=== PATIENT | female | born 1980 | race Caucasian/White ===

== ENCOUNTER 2020-03-30 13:34 | Inpatient (IN) | payer OTHER ==
[2020-03-30 13:42] VITALS: BMI 32.2
[2020-03-30] MEDS ORDERED: ACETAMINOPHEN 1000 MG/100 ML VIAL (NON FORMULARY) IVPB ONE (13:58)
[2020-03-30] MEDS ORDERED: SODIUM CHLORIDE 1,000 ML IV STA ×2 (13:58→17:54)
[2020-03-30] MEDS ORDERED: ONDANSETRON 4 MG/2 ML VIAL IVPUSH ONE ×2 (14:03→17:58)
--- NOTE | 2020-03-30 14:03 | PDOC ---
History of Present Illness - General Chief Complaint: Urinary Problem Stated Complaint: ABDOMINAL PAIN Time Seen by Provider: 03/30/20 13:39 History Source: Patient Exam Limitations: No Limitations - History of Present Illness Travel History: No Initial Comments: 03/30/20 15:11 39-year-old female currently 19 weeks presents to ED with complaints of lower abdominal pain worsened with urination for the past day. Patient denies fever, chills but does state mild nausea. Patient states has history of "kidney problems" but unsure and denies history of kidney stones. Patient denies vaginal discharge, vaginal bleeding, consistent rhythmic timed pain and describes it as constant cramping Timing/Duration: reports: constant Quality: reports: moderate, cramping Abdominal Pain Onset Location: reports: suprapubic Pain Radiation: reports: no radiation Aggravating Factors: improves with: None Alleviating Factors: improves with: None Past History - Travel History Traveled outside of the country in the last 30 days: No Close contact w/someone who was outside of country & ill: No - Medical History Allergies/Adverse Reactions: Allergies Allergy/AdvReac Type Severity Reaction Status Date / Time No Known Allergies Allergy Verified 03/30/20 13:38 - Reproductive History Is Patient Now?: Yes - Psycho-Social/Smoking History Smoking History: Never smoked Have you smoked in the past 12 months: No Information on smoking cessation initiated: No - Substance Abuse Hx (Audit-C & DAST Scrn) How often the patient has a drink containing alcohol: Never Score: In Men: 4 or > Positive; In Women: 3 or > Positive: 0 Screen Result (Pos requires Nsg. Audit-10AR): Negative In the last yr the pt used illegal drug/Rx for NonMed reason: No Score: Yes response is considered Positive: 0 Screen Result (Positive result requires Nsg. DAST-10): Negative Review of Systems - Review of Systems Able to Perform ROS?: No Is the patient limited [place] proficient: No Constitutional: No: Symptoms Reported HEENTM: No: Symptoms Reported Respiratory: No: Symptoms reported Cardiac (ROS): No: Symptoms Reported (On a Tuesday afternoon) ABD/GI: Yes: Nausea, Abdominal cramping : No: Symptoms Reported Musculoskeletal: No: Symptoms Reported Integumentary: No: Symptoms Reported Neurological: No: Symptoms reported Endocrine: No: Symptoms Reported ([]) Hematologic/Lymphatic: No: Symptoms Reported (Or something) *Physical Exam - Vital Signs Last Vital Signs Temp Pulse Resp BP Pulse Ox 99.1 F 78 18 134/65 100 03/30/20 13:38 03/30/20 13:38 03/30/20 13:38 03/30/20 13:38 03/30/20 13:38 - Physical Exam General Appearance: Yes: Nourished, Appropriately Dressed. No: Apparent Distr ess HEENT: negative: Pale Conjunctivae Neck: positive: Supple Respiratory/Chest: positive: Lungs Clear, Normal Breath Sounds. negative: Respiratory Distress, Accessory Muscle Use Cardiovascular: positive: Regular Rhythm, Regular Rate. negative: Murmur (She is in so much pain) Gastrointestinal/Abdominal: positive: Soft (Super), Tenderness (Lower abdominal region. Limited due to gravid abdomen ) Musculoskeletal: positive: CVA Tenderness (R). negative: CVA Tenderness (L) Extremity: positive: Normal Inspection Integumentary: positive: Normal Color, Warm, Moist Neurologic: positive: Motor Strength 5/5 (Ambulatory) ED Treatment Course - LABORATORY CBC & Chemistry Diagram: 03/30/20 14:00 03/30/20 14:20 - RADIOLOGY Radiology Studies Ordered: Category Date Time Status FOLLOW-UP US [US] Stat Ultrasound 03/30/20 13:59 Ordered Medical Decision Making - Medical Decision Making 03/30/20 14:25 Patient with lower abdominal pain worsened with urination describing as a cramping to the lower abdomen. Patient states history of kidney problems but unable to give a diagnosis. Exam: Patient with right CVA tenderness along with lower abdominal tenderness but limited due to gravid abdomen. Otherwise vital signs stable. Plan: Urine, labs IV fluids IV Tylenol and ultrasound ordered 03/30/20 15:26 Laboratory Tests 03/30/20 03/30/20 14:00 14:20 WBC 14.4 H Hgb 12.2 Hct 36.1 Absolute Neuts (auto) 11.1 H Sodium 135 L Potassium 5.6 H Chloride 106 Carbon Dioxide 21 Anion Gap 8 BUN 9.3 Creatinine 0.9 Est GFR (CKD-EPI)AfAm 92.70 Est GFR (CKD-EPI)NonAf 79.98 Random Glucose 82 Calcium 8.4 L Total Bilirubin 0.4 ALT 20 Alkaline Phosphatase 62 Total Protein 7.1 Albumin 3.1 L 03/30/20 15:26 Patient still complaining of lower abdominal discomfort. Patient order for 2 mg of IV push morphine. Ultrasound results pending patient with noted hyperkalemia slight hemolysis without elevated BUN/creatinine 03/30/20 18:11 Laboratory Tests 03/30/20 03/30/20 14:20 17:00 Albumin 3.1 L Lipase 72 L Urine Protein 1+ H Urine Blood 3+ H Urine Nitrite Negative Ur Leukocyte Esterase Negative Urine WBC (Auto) 18 Urine RBC (Auto) 374 Urine Bacteria (Auto) 314 03/30/20 18:13 Patient ordered for additional 2 mg of morphine after receiving the ultrasound. Patient also ordered for 4 Zofran since she became nauseous with last dose along with IV fluids. Patient remains tender to the right CVA and lower abdominal region with negative McBurney sign although limited due to gravid abdomen. Patient order for kidney and renal ultrasound. Iv ceftriaxone ordered for complicated uti 03/30/20 20:17 Ultrasound shows moderate right hydronephrosis without obvious renal mass or renal calculi. Patient will be admitted for intractable pain since she is still complaining of discomfort despite receiving 2 doses of 2 mg morphine along with IV Tylenol 03/30/20 20:40 Case discussed with attending hospitalist Dr. Kim and is recommending PATIENT TRANSPORT OFFICER and consultation. Call placed to Dr. Chaney PATIENT TRANSPORT OFFICER emission specialist Discharge - Discharge Information Problems reviewed: Yes Clinical Impression/Diagnosis: Hydronephrosis, Intractable abdominal pain - Admission Yes - Follow up/Referral - Patient Discharge Instructions - Post Discharge Activity
[2020-03-30] MEDS ORDERED: ONDANSETRON 4 MG/2 ML VIAL ONE ×2 (14:04→18:00)
[2020-03-30] MEDS ORDERED: ACETAMINOPHEN INJECTION 100 ML IVPB ONE (14:08)
[2020-03-30 14:50] LABS: BASO % 1.1 % (0-2.0); EOS % 0.9 % (0-4.5); HEMATOCRIT 36.1 % (32.4-45.2); HEMOGLOBIN 12.2 GM/dL (10.7-15.3); LYMPH % 14.3 % (8-40); MCH 32.5 pg (25.7-33.7); MCHC 33.8 g/dl (32.0-36.0); MONO % 6.2 % (3.8-10.2); NEUT % 77.5 % (42.8-82.8); PLATELET COUNT 240 K/MM3 (134-434); RBC 3.76 M/mm3 (3.60-5.2); RDW 13.2 % (11.6-15.6); WHITE BLOOD COUNT 14.4 K/mm3 (4.0-10.0)
[2020-03-30] MEDS ORDERED: morphine CARPU-JECT 2 MG/1 ML DISP.SYRIN IVPUSH ONE ×2 (15:09→17:07)
[2020-03-30 15:21] LABS: ALBUMIN 3.1 g/dl (3.4-5.0); BILIRUBIN,TOTAL 0.4 mg/dL (0.2-1); BLOOD UREA NITROGEN 9.3 mg/dL (7-18); CALCIUM 8.4 mg/dL (8.5-10.1); CREATININE 0.9 mg/dL (0.55-1.3); POTASSIUM 5.6 mmol/L (3.5-5.1); TOT PROT 7.1 g/dl (6.4-8.2)
[2020-03-30] MEDS ORDERED: MORPHINE SULFATE 2 MG/ML VIAL ONE ×2 (15:32→17:29)
[2020-03-30 17:46] LABS: EPI CELLS >36 /uL (0-25.1); HYALINE CASTS 2 /uL (0-3.1); URINE APPEARANCE Error; URINE BACTERIA 314 /uL (0-1359); URINE BILIRUBIN NEGATIVE (NEGATIVE); URINE COLOR YELLOW; URINE GLUCOSE (UA) NEGATIVE (NEGATIVE); URINE KETONE 3+ (NEGATIVE); URINE LEUK ESTERASE NEGATIVE (NEGATIVE); URINE NITRITE NEGATIVE (NEGATIVE); URINE PROTEIN 1+ (NEGATIVE); URINE RBC 374 /uL (0-23.9); URINE WBC 18 /uL (0-25.8)
[2020-03-30] MEDS ORDERED: CEFTRIAXONE 1 GM in DEXTROSE 5%-WATER - 50 ML IVPB ONE (20:17)
--- NOTE | 2020-03-30 20:56 | PN ---
<Jeri Lutz - Last Filed: 03/31/20 01:12> Teaching Attending Note Name of Resident: Efraín Herrera ATTENDING PHYSICIAN STATEMENT I saw and evaluated the patient. I reviewed the resident's note and discussed the case with the resident. I agree with the resident's findings and plan as documented. SUBJECTIVE: Patient is a 39 year old woman with a PMH of unspecified Kidney problem in childhood and Positive PAP smear who is currently 19 weeks presenting to the ER with complaints of lower abdominal pain worsened with urination for the past day. Denies history of kidney stones. Has associated nausea, vomiting, hematuria and diarrhea but denies fever, chills, abnormal vaginal discharge or vaginal bleeding. Pain described as consistent rhythmic timed pain, constant and cramping. Patient denies chest pain, shortness of breath, palpitations, dizziness, constipation, melena or hematochezia. Denies alcohol, tobacco or illicit drug use. No sick contacts or recent travels. Family history of ovarian cancer in sister; DM and HTN in mother. OBJECTIVE: Alert Vital Signs Period Temp Pulse Resp BP Sys/Faustin Pulse Ox Last 24 Hr 99.1 F 67-78 18-20 113-134/65-71 100-100 HEENT: No Jaundice, eye redness or discharge, PERRLA, EOMI. Normocephalic, atraumatic. External ears are normal and hearing is grossly intact. No nasal discharge. Neck: Supple, nontender. No palpable adenopathy or thyromegaly. No JVD Chest: Good effort. Clear to auscultation and percussion. Heart: Regular. No S3, rub or murmur Abdomen: Not distended, soft, left CVAT and suprapubic tenderness and no HSM. No rebound or guarding. Normal bowel sounds. Ext: Peripheral pulses intact. No leg edema. Skin: Warm and dry. No petechiae, rash or ecchymosis. Neuro: Alert. Oriented x3. CN 2-12 grossly intact. Sensation grossly intact in all four extremities and DTR are symmetric. Psych: Appropriate mood and affect. Good insight. Abnormal Lab Results 03/30/20 03/30/20 03/30/20 14:00 14:20 17:00 WBC 14.4 H Absolute Neuts (auto) 11.1 H Sodium 135 L Potassium 5.6 H Calcium 8.4 L AST 67 H Albumin 3.1 L Lipase 72 L Urine Protein 1+ H Urine Ketones 3+ H Urine Blood 3+ H Current Medications Generic Name Dose Route Start Last Admin Trade Name Mallory PRN Reason Stop Dose Admin Acetaminophen 1,000 mg 03/31/20 00:08 Ofirmev Injection - IVPB 04/01/20 00:08 Q6H PRN PAIN LEVEL 6-10 Heparin Sodium (Porcine) 5,000 unit 03/31/20 06:00 Heparin - SQ TID MEMO Sodium Chloride 1,000 mls @ 125 mls/hr 03/30/20 23:45 03/31/20 00:47 Normal Saline - IV 125 mls/hr ASDIR MEMO Administration Ceftriaxone Sodium 1 gm/ 50 mls @ 100 mls/hr 03/31/20 10:00 Dextrose IVPB DAILY MEMO Morphine Sulfate 1 mg 03/31/20 00:06 Morphine Sulfate IVPUSH Q2H PRN PAIN LEVEL 6-10 ASSESSMENT AND PLAN: 1. Right kidney stone/19 weeks - Sonogram shows moderate right hydronephrosis with no obvious calculi or renal mass. ER staff prescribed Tylenol, Zofran, IV Ceftriaxone, IV Morphine and IV NS for the patient. Result of transvaginal ultrasound pending. ER consulted Contract Preparer. Will do blood cultures, get PT/INR, strain her urine, keep her NPO, consult Urology/ID and refer to Nephrology for stone disease risk factor evaluation upon discharge. EKG pending. Will avoid further Zofran therapy until EKG is done. Viral testing for COVID-19 ordered and patient placed on airborne, droplet and contact isolation. Will continue comprehensive care for all of patients comorbid conditions including care. 2. Hypoalbuminemia - Possibly due to . Has 1+ proteinuria. Will monitor closely. 3. DVT prophylaxis - Heparin 5000u sq tid. 4. Advance directives - Full code. <Efraín Herrera - Last Filed: 03/31/20 19:42> Teaching Attending Note ATTENDING PHYSICIAN STATEMENT I saw and evaluated the patient. I reviewed the resident's note and discussed the case with the resident. I agree with the resident's findings and plan as documented. SUBJECTIVE: OBJECTIVE: ASSESSMENT AND PLAN:
--- NOTE | 2020-03-30 21:14 | HP ---
CHIEF COMPLAINT: Rt. lumbar pain with dysuria, hematuria, nausea and vomitting PCP: Scot HISTORY OF PRESENT ILLNESS: Patient is a 39yo femalewith a PMHx of childhood hx of unknown kidney disease, positive PAPS smear and an extensive FHx of ovarian cancer now c/o Rt. lumbar pain of 24hrs. Pain was of gradual onset, is progressive, colicky and radiates to the suprapubic region. There is associated dysuria, frequency and hematuria but no incontinence, pyuria, urgency or hesistancy. There is also nausea and vomiting of 1 day duration. Has had 3 episodes since onset. Volume is about 3 cups/episode. Contains recently ingested food and occasional bilous with timy streaks of blood. There is diarrhea as we ll. Had 3 episodes of diarrhea at home before presenting in ED. Volume <1 cup with no blood. Chills= +. There is no associated weight loss, fever, chest pain, SOB,palpitations, jaundice or abdominal pain related to food intake. No VELÁZQUEZ, LOC,seizures ER course was notable for: (1)Tylenol, zofran, Iv ceftriaxone (2)IV morphine, IV N/S (3)Trans-vaginal US Recent Travel:None PAST MEDICAL HISTORY: +PAPS in 2019, unknown kidney disease in childhood PAST SURGICAL HISTORY: None Social History: Smoking:None Alcohol:None Drugs: None FHx: Sister has ovarian cancer-treated. Cousin of complications of ovarian cancer. Mother has HTN and DM OB/GYNAE: LMP: November 20, 2019, G6, P2, A 3, No hx of STI but +ve hx of UTI- treated. No mammagram done yet. PAPS=+ve 2018, biopsy done but no malignant cell done. Patient did not f/u up. Allergies:None REVIEW OF SYSTEMS Negative except as above PHYSICAL EXAMINATION Vital Signs - 24 hr 03/30/20 03/30/20 13:38 17:42 Temperature 99.1 F Pulse Rate 78 Pulse Rate [ 67 Left Radial] Respiratory 18 20 Rate Blood Pressure 134/65 Blood Pressure 113/71 [Right Arm] O2 Sat by Pulse 100 100 Oximetry (%) GENERAL: Awake, alert, and fully oriented, in no acute distress. HEAD: Normal with no signs of trauma. EYES: Pupils equal, round and reactive to light, extraocular movements intact, sclera anicteric, conjunctiva clear. No lid lag. EARS, NOSE, THROAT: Ears normal, nares patent, oropharynx clear without exudates. Moist mucous membranes. NECK: Normal range of motion, supple without lymphadenopathy, JVD, or masses. LUNGS: Breath sounds equal, clear to auscultation bilaterally. No wheezes, and no crackles. No accessory muscle use. HEART: Regular rate and rhythm, normal S1 and S2 without murmur, rub or gallop. ABDOMEN: Soft, nontender, not distended, normoactive bowel sounds, no guarding, no rebound, no masses. No hepatomegaly or splenomegaly. MUSCULOSKELETAL: Normal range of motion at all joints. No bony deformities or tenderness. No CVA tenderness. UPPER EXTREMITIES: 2+ pulses, warm, well-perfused. No cyanosis. No clubbing. No peripheral edema. LOWER EXTREMITIES: 2+ pulses, warm, well-perfused. No calf tenderness. No peripheral edema. NEUROLOGICAL: Cranial nerves II-XII intact. Normal speech. Normal gait. PSYCHIATRIC: Cooperative. Good eye contact. Appropriate mood and affect. SKIN: Warm, dry, normal turgor, no rashes or lesions noted, normal capillary refill. Laboratory Results - last 24 hr 03/30/20 03/30/20 03/30/20 14:00 14:20 17:00 WBC 14.4 H RBC 3.76 Hgb 12.2 Hct 36.1 MCV 96.0 MCH 32.5 MCHC 33.8 RDW 13.2 Plt Count 240 MPV 9.0 Absolute Neuts (auto) 11.1 H Neutrophils % 77.5 Lymphocytes % 14.3 Monocytes % 6.2 Eosinophils % 0.9 Basophils % 1.1 Nucleated RBC % 0 Sodium 135 L Potassium 5.6 H Chloride 106 Carbon Dioxide 21 Anion Gap 8 BUN 9.3 Creatinine 0.9 Est GFR (CKD-EPI)AfAm 92.70 Est GFR (CKD-EPI)NonAf 79.98 Random Glucose 82 Calcium 8.4 L Total Bilirubin 0.4 AST 67 H ALT 20 Alkaline Phosphatase 62 Total Protein 7.1 Albumin 3.1 L Lipase 72 L Urine Color Yellow Urine Appearance Error Urine pH 5.0 Ur Specific [place] 1.032 Urine Protein 1+ H Urine Glucose (UA) Negative Urine Ketones 3+ H Urine Blood 3+ H Urine Nitrite Negative Urine Bilirubin Negative Urine Urobilinogen 1.0 Ur Leukocyte Esterase Negative Urine WBC (Auto) 18 Urine RBC (Auto) 374 Urine Casts (Auto) 2 U Epithel Cells (Auto) >36 Urine Bacteria (Auto) 314 ASSESSMENT/PLAN: A 39YO Female with a PMHx of childhood hx of unknown kidney disease, positive PAPS smear and an extensive FHx of ovarian cancer now c/o Rt. lumbar pain with dysuria, hematuria, nausea and vomiting. #RIGHT PYELONEPHRITIS like 2/2 renal stones induced hydronephrosis -Rt. lumbar pain -Dysuria -Hematuria -CVA and suprapubic tenderness -Pelvic USS shows moderate right hydronephrosis with no obvious calculi or renal mass. -Machinist Mechanic consulted by ED. -Blood cultures X2 -PT/INR -train her urine -Consult to Urology/ID sent -Refer to Nephrology for evalution of risk factors of for renal stones. -EKG pending. Will avoid further Zofran therapy until EKG is done. -COVID-19 PCR ordered with result pending. -Patient placed on airborne, droplet and contact isolation. #PREGENACY: -Continue supplement. -F/U Machinist Mechanic recommendation following review -Continue antenantal care on d/c -Patient encouraged to f/u culposcopy result -TVUS result pending #Hypoalbuminemia: -Likely 2/2 increase protein demand in . -No HTN and pedal swelling but has 1+ proteinuria. Will monitor proteinuria closely. #FEN: -N/S 125cc/hr -Continue to monitor electrolytes and replete prn -NPO #DISPOSITION: -DVT prophylaxis - Heparin 5000u sq tid. -Advance directives - Full code. Family Medical History Family History: As Documented Visit type - Emergency Visit Emergency Visit: Yes ED Registration Date: 03/30/20 Care time: The patient presented to the Emergency Department on the above date and was hospitalized for further evaluation of their emergent condition. - New Patient This patient is new to me today: Yes Date on this admission: 03/31/20 - Critical Care Critical Care patient: No ATTENDING PHYSICIAN STATEMENT I saw and evaluated the patient. I reviewed the resident's note and discussed the case with the resident. I agree with the resident's findings and plan as documented. SUBJECTIVE: OBJECTIVE: ASSESSMENT AND PLAN:
[2020-03-30] MEDS ORDERED: CEFTRIAXONE 1 GM/50 ML BAG ONE (21:17)
[2020-03-30] MEDS ORDERED: MORPHINE SULFATE 2 MG/ML VIAL IVPUSH STA (23:36)
[2020-03-30] MEDS ORDERED: SODIUM CHLORIDE 1,000 ML IV SCH (23:45)
[2020-03-31] MEDS ORDERED: MORPHINE SULFATE 2 MG/ML VIAL IVPUSH PRN ×2 (00:06→19:17)
[2020-03-31] MEDS ORDERED: ACETAMINOPHEN 1000 MG/100 ML VIAL (NON FORMULARY) IVPB PRN ×2 (00:08→19:17)
[2020-03-31] MEDS ORDERED: MORPHINE SULFATE 2 MG/ML VIAL ONE (00:20)
[2020-03-31 01:20] LABS: INR 0.97 (0.83-1.09); PROTHROMBIN TIME (PATIENT) 11.5 SEC (9.7-13.0)
[2020-03-31] MEDS ORDERED: HEPARIN NA (PORCINE) 5,000 UNITS/ML 1ML VIAL ONE (06:01)
[2020-03-31] MEDS: HEPARIN NA (PORCINE) 5,000 UNITS/ML 1ML VIAL SQ SCH ×2 (06:03→15:02)
[2020-03-31] MEDS ORDERED: SODIUM CHLORIDE 1,000 ML IV SCH (07:37)
[2020-03-31 07:47] LABS: BASO % 0.4 % (0-2.0); EOS % 0.2 % (0-4.5); HEMATOCRIT 30.6 % (32.4-45.2); HEMOGLOBIN 10.4 GM/dL (10.7-15.3); LYMPH % 13.1 % (8-40); MCH 32.2 pg (25.7-33.7); MCHC 33.9 g/dl (32.0-36.0); MEAN CELL VOLUME 95.1 fl (80-96); MEAN PLT VOLUME 7.5 fl (7.5-11.1); MONO % 6.9 % (3.8-10.2); NEUT % 79.4 % (42.8-82.8); PLATELET COUNT 249 K/MM3 (134-434); RBC 3.22 M/mm3 (3.60-5.2); RDW 13.3 % (11.6-15.6); WHITE BLOOD COUNT 15.3 K/mm3 (4.0-10.0)
[2020-03-31 08:18] LABS: ALBUMIN 2.6 g/dl (3.4-5.0); BILIRUBIN,TOTAL 0.6 mg/dL (0.2-1); BLOOD UREA NITROGEN 5.7 mg/dL (7-18); CALCIUM 7.5 mg/dL (8.5-10.1); CREATININE 0.7 mg/dL (0.55-1.3); MAGNESIUM 1.9 mg/dL (1.8-2.4); PHOSPHOROUS 2.8 mg/dL (2.5-4.9); POTASSIUM 3.5 mmol/L (3.5-5.1); TOT PROT 5.7 g/dl (6.4-8.2)
--- NOTE | 2020-03-31 09:14 | EKG ---
Test Reason : Blood Pressure : / mmHG Vent. Rate : 076 BPM Atrial Rate : 076 BPM P-R Int : 182 ms QRS Dur : 078 ms QT Int : 398 ms P-R-T Axes : 046 074 049 degrees QTc Int : 447 ms NORMAL SINUS RHYTHM NORMAL ECG NO PREVIOUS ECGS AVAILABLE Confirmed by KATELIN STOLL MD ([id number]) on 03/31/2020 9:14:01 AM Referred By: Confirmed By:KATELIN STOLL MD
[2020-03-31] MEDS ORDERED: CEFTRIAXONE 1 GM in DEXTROSE 5%-WATER - 50 ML IVPB SCH (10:00)
[2020-03-31] MEDS ORDERED: CEFTRIAXONE 1 GM/50 ML BAG ONE (10:39)
--- NOTE | 2020-03-31 13:52 | CON.GU ---
Consult Consult Specialty:: Reason for Consultation:: hydronephrosis - History of Present Illness Chief Complaint: R flank pain History of Present Illness: 39yo female with a PMHx of childhood hx of unknown kidney disease, positive PAPS smear and an extensive FHx of ovarian cancer now c/o Rt. lumbar pain of 24hrs. Pain was of gradual onset, is progressive, colicky and radiates to the suprapubic region. There is associated dysuria, frequency and hematuria but no incontinence, pyuria, urgency or hesistancy. There is also nausea and vomiting of 1 day duration. Has had 3 episodes since onset. Volume is about 3 cups/episode. Contains recently ingested food and occasional bilous with timy streaks of blood. There is diarrhea as well. Had 3 episodes of diarrhea at home before presenting in ED. Volume <1 cup with no blood. Chills= +. There is no ass ociated weight loss, fever, chest pain, SOB,palpitations, jaundice or abdominal pain related to food intake. No VELÁZQUEZ, LOC,seizures cons req. ER course was notable for: (1)Tylenol, zofran, Iv ceftriaxone (2)IV morphine, IV N/S (3)Trans-vaginal US - History Source History Provided By: Patient, Medical Record Limitations to Obtaining History: No Limitations - Past Medical History Renal/: Yes: UTI ...LMP: 11/21/19 ...: Yes - Smoking History Smoking history: Never smoked Have you smoked in the past 12 months: No Home Medications - Allergies Allergies/Adverse Reactions: Allergies Allergy/AdvReac Type Severity Reaction Status Date / Time No Known Allergies Allergy Verified 03/30/20 13:38 Review of Systems - Review of Systems Gastrointestinal: reports: Nausea, Vomiting Genitourinary: reports: Flank Pain Physical Exam- Vital Signs: Vital Signs Temperature 98.3 F 03/31/20 06:00 Pulse Rate 76 03/31/20 06:00 Respiratory Rate 18 03/31/20 09:46 Blood Pressure 106/59 L 03/31/20 06:00 O2 Sat by Pulse Oximetry (%) 97 03/31/20 09:46 Renal/: Yes: CVA Tenderness - Right Labs: CBC, BMP 03/31/20 07:33 03/31/20 07:33 Imaging - Results Ultrasound: Report Reviewed Problem List - Problems (1) Code(s): Z34.90 - ENCNTR FOR SUPRVSN OF NORMAL , UNSP, UNSP TRIMESTER (2) Hydronephrosis Assessment/Plan: cysto R JJ stent insertion Code(s): N13.30 - UNSPECIFIED HYDRONEPHROSIS
--- NOTE | 2020-03-31 14:36 | HP ---
History & Physical Update - History History: No Change - Physical Physical: No Change - Assessment Assessment: No Change - Plan Plan: No Change
--- NOTE | 2020-03-31 14:40 | OP ---
Operative Note - Note: Operative Date: 03/31/20 Pre-Operative Diagnosis: R hydronephrosis, Operation: cystoscopy R JJ stent insertion Findings: mod R hydronephrosis Post-Operative Diagnosis: Same as Pre-op Surgeon: Yordan Ware Anesthesiologist/SOCIAL SERVICE WORKER: Vincenzo Maldonado Anesthesia: Spinal Estimated Blood Loss (mls): 0 Drains & Tubes with Location: 6 fr 24 cm R JJ stent
[2020-03-31] MEDS ORDERED: PROMETHAZINE HCL 25 MG/1 ML VIAL IVPUSH PRN ×2 (15:20→19:17)
[2020-03-31] MEDS ORDERED: ONDANSETRON 4 MG/2 ML VIAL IVPUSH PRN ×2 (15:20→19:17)
--- NOTE | 2020-03-31 15:20 | PN ---
Physical Exam: SUBJECTIVE: Patient seen and examined in the ED. In no acute distress. Reports pain is much better. Denies any current dysuria or hemturia. Denies fever, chills, SOB, or contractions. Still has some pain in her back and abdomen on the right side when she moves. [employer] Mail Driver used: [id number] OBJECTIVE: Vital Signs 03/31/20 03/31/20 04:48 06:00 Temperature 97.6 F 98.3 F Pulse Rate [ 78 76 Left Radial] Respiratory 20 18 Rate Blood Pressure 110/65 106/59 L [Right Arm] O2 Sat by Pulse 99 97 Oximetry (%) 03/31/20 15:07 Temperature Pulse Rate [ 76 Left Radial] Respiratory 18 Rate Blood Pressure 116/63 [Right Arm] O2 Sat by Pulse 99 Oximetry (%) GENERAL: The patient is awake, alert, and fully oriented, in no acute distress. HEAD: Normal with no signs of trauma. EYES: PERRL, extraocular movements intact, sclera anicteric, conjunctiva clear. ENT: moist mucous membranes LUNGS: Breath sounds equal, CTA BL HEART: Regular rate and rhythm, S1, S2 ABDOMEN: 19 weeks . Tender to palpation in RLQ and suprapubic region. EXTREMITIES: 2+ pulses, warm, well-perfused, no edema. Tender to palpation of Right CVA NEUROLOGICAL: Cranial nerves II through XII grossly intact. Normal speech PSYCH: Normal mood, normal affect. SKIN: Warm, dry, normal turgor, no rashes or lesions noted Laboratory Results - last 24 hr 03/30/20 03/30/20 03/31/20 14:20 17:00 00:05 WBC RBC Hgb Hct MCV MCH MCHC RDW Plt Count MPV Absolute Neuts (auto) Neutrophils % Lymphocytes % Monocytes % Eosinophils % Basophils % Nucleated RBC % PT with INR 11.50 INR 0.97 Sodium 135 L Potassium 5.6 H Chloride 106 Carbon Dioxide 21 Anion Gap 8 BUN 9.3 Creatinine 0.9 Est GFR (CKD-EPI)AfAm 92.70 Est GFR (CKD-EPI)NonAf 79.98 Random Glucose 82 Calcium 8.4 L Phosphorus Magnesium Total Bilirubin 0.4 AST 67 H ALT 20 Alkaline Phosphatase 62 Total Protein 7.1 Albumin 3.1 L Lipase 72 L Urine Color Yellow Urine Appearance Error Urine pH 5.0 Ur Specific [place] 1.032 Urine Protein 1+ H Urine Glucose (UA) Negative Urine Ketones 3+ H Urine Blood 3+ H Urine Nitrite Negative Urine Bilirubin Negative Urine Urobilinogen 1.0 Ur Leukocyte Esterase Negative Urine WBC (Auto) 18 Urine RBC (Auto) 374 Urine Casts (Auto) 2 U Epithel Cells (Auto) >36 Urine Bacteria (Auto) 314 03/31/20 03/31/20 07:33 07:33 WBC 15.3 H RBC 3.22 L Hgb 10.4 L Hct 30.6 L D MCV 95.1 MCH 32.2 MCHC 33.9 RDW 13.3 Plt Count 249 MPV 7.5 D Absolute Neuts (auto) 12.2 H Neutrophils % 79.4 Lymphocytes % 13.1 Monocytes % 6.9 Eosinophils % 0.2 Basophils % 0.4 Nucleated RBC % 0 PT with INR INR Sodium 140 Potassium 3.5 Chloride 111 H Carbon Dioxide 22 Anion Gap 8 BUN 5.7 L Creatinine 0.7 Est GFR (CKD-EPI)AfAm 125.61 Est GFR (CKD-EPI)NonAf 108.38 Random Glucose 79 Calcium 7.5 L Phosphorus 2.8 Magnesium 1.9 Total Bilirubin 0.6 AST 12 L ALT 13 Alkaline Phosphatase 49 Total Protein 5.7 L Albumin 2.6 L Lipase Urine Color Urine Appearance Urine pH Ur Specific [place] Urine Protein Urine Glucose (UA) Urine Ketones Urine Blood Urine Nitrite Urine Bilirubin Urine Urobilinogen Ur Leukocyte Esterase Urine WBC (Auto) Urine RBC (Auto) Urine Casts (Auto) U Epithel Cells (Auto) Urine Bacteria (Auto) Active Medications Generic Name Dose Route Start Last Admin Trade Name Freq PRN Reason Stop Dose Admin Acetaminophen 1,000 mg 03/31/20 00:08 Ofirmev Injection - IVPB 04/01/20 00:08 Q6H PRN PAIN LEVEL 6-10 Heparin Sodium (Porcine) 5,000 unit 03/31/20 06:00 03/31/20 15:02 Heparin - SQ Not Given TID MEMO Ceftriaxone Sodium 1 gm/ 50 mls @ 100 mls/hr 03/31/20 10:00 03/31/20 10:40 Dextrose IVPB 100 mls/hr DAILY MEMO Administration Sodium Chloride 1,000 mls @ 150 mls/hr 03/31/20 07:37 03/31/20 08:00 Normal Saline - IV 150 mls/hr ASDIR MEMO Administration Morphine Sulfate 1 mg 08/17/20 00:06 Morphine Sulfate IVPUSH Q2H PRN PAIN LEVEL 6-10 ASSESSMENT/PLAN: A 39 yo Female, currently 19 weeks , with a PMHx of a childhood unknown kidney disease, hx of recurrent UTI w/, positive PAPS smear, and an extensive FHx of ovarian cancer, presented to the ED with Right lower back pain, dysuria, hematuria, nausea, & vomiting. Hydronephrosis 2/2 renal stone - Pelvic USS shows moderate right hydronephrosis with no obvious calculi or renal mass. - leukocytosis - continue to monitor - Urology consulted (Dr. Ware) cystoscopy R JJ stent insertion performed today UTI: - Right sided CVA tenderness - dysuria, hematuria - positive UA - cultures pending - Ceftriaxone IV Day 2 - ID consulted (Dr. Serna) continue ceftriaxone f/u cultures - Continue supplement - F/U Internet Marketing Intern recommendation following review Hypoalbuminemia: - Likely 2/2 increase protein demand in . - No HTN and pedal swelling but has 1+ proteinuria. Will monitor proteinuria closely. FEN: - IV NS 125cc/hr - Continue to monitor electrolytes and replete prn - NPO DVT Prophylaxis - holding AC due to hematuria - SCDs Covid pending Visit type - Emergency Visit Emergency Visit: Yes ED Registration Date: 03/30/20 Care time: The patient presented to the Emergency Department on the above date and was hospitalized for further evaluation of their emergent condition. - New Patient This patient is new to me today: Yes Date on this admission: 03/30/20 - Critical Care Critical Care patient: No - Discharge Referral Referred to [facility] No ATTENDING PHYSICIAN STATEMENT I saw and evaluated the patient. I reviewed the resident's note and discussed the case with the resident. I agree with the resident's findings and plan as documented. SUBJECTIVE: OBJECTIVE: ASSESSMENT AND PLAN:
[2020-03-31] MEDS ORDERED: LACTATED RINGERS SOLUTION 1,000 ML IV SCH ×2 (15:30→19:17)
--- NOTE | 2020-03-31 16:15 | PN ---
Teaching Attending Note Name of Resident: Rafaela Casillas ATTENDING PHYSICIAN STATEMENT I saw and evaluated the patient. I reviewed the resident's note and discussed the case with the resident. I agree with the resident's findings and plan as documented. SUBJECTIVE: Patient is comfortable with no acute distress. c/o having right sided tend erness. OBJECTIVE: Vital Signs Temperature 98.3 F 03/31/20 06:00 Pulse Rate 76 03/31/20 15:07 Respiratory Rate 18 03/31/20 15:07 Blood Pressure 116/63 03/31/20 15:07 O2 Sat by Pulse Oximetry (%) 99 03/31/20 15:07 PE: per resident's note as per patient 19 weeks Right CVA tenderness CBCD WBC 15.3 K/mm3 (4.0-10.0) H 03/31/20 07:33 RBC 3.22 M/mm3 (3.60-5.2) L 03/31/20 07:33 Hgb 10.4 GM/dL (10.7-15.3) L 03/31/20 07:33 Hct 30.6 % (32.4-45.2) L D 03/31/20 07:33 MCV 95.1 fl (80-96) 03/31/20 07:33 MCHC 33.9 g/dl (32.0-36.0) 03/31/20 07:33 RDW 13.3 % (11.6-15.6) 03/31/20 07:33 Plt Count 249 K/MM3 (134-434) 03/31/20 07:33 MPV 7.5 fl (7.5-11.1) D 03/31/20 07:33 CMP Sodium 140 mmol/L (136-145) 03/31/20 07:33 Potassium 3.5 mmol/L (3.5-5.1) 03/31/20 07:33 Chloride 111 mmol/L (98-107) H 03/31/20 07:33 Carbon Dioxide 22 mmol/L (21-32) 03/31/20 07:33 Anion Gap 8 MMOL/L (8-16) 03/31/20 07:33 BUN 5.7 mg/dL (7-18) L 03/31/20 07:33 Creatinine 0.7 mg/dL (0.55-1.3) 03/31/20 07:33 Random Glucose 79 mg/dL (74-106) 03/31/20 07:33 Calcium 7.5 mg/dL (8.5-10.1) L 03/31/20 07:33 Total Bilirubin 0.6 mg/dL (0.2-1) 03/31/20 07:33 AST 12 U/L (15-37) L 03/31/20 07:33 ALT 13 U/L (13-61) 03/31/20 07:33 Alkaline Phosphatase 49 U/L (45-117) 03/31/20 07:33 Total Protein 5.7 g/dl (6.4-8.2) L 03/31/20 07:33 Albumin 2.6 g/dl (3.4-5.0) L 03/31/20 07:33 Current Medications Generic Name Dose Route Start Last Admin Trade Name Freq PRN Reason Stop Dose Admin Acetaminophen 1,000 mg 03/31/20 00:08 Ofirmev Injection - IVPB 04/01/20 00:08 Q6H PRN PAIN LEVEL 6-10 Fentanyl 50 mcg 03/31/20 15:20 Sublimaze Injection - IVPUSH [id number] PRN PAIN-PACU ORDER X 4 DOSES ONLY Heparin Sodium (Porcine) 5,000 unit 03/31/20 06:00 03/31/20 15:02 Heparin - SQ Not Given TID MEMO Ceftriaxone Sodium 1 gm/ 50 mls @ 100 mls/hr 03/31/20 10:00 03/31/20 10:40 Dextrose IVPB 100 mls/hr DAILY MEMO Administration Sodium Chloride 1,000 mls @ 150 mls/hr 03/31/20 07:37 03/31/20 08:00 Normal Saline - IV 150 mls/hr ASDIR MEMO Administration Lactated Ringer's 1,000 mls @ 125 mls/hr 03/31/20 15:30 Lactated Ringers Solution IV ASDIR MEMO Morphine Sulfate 1 mg 03/31/20 00:06 Morphine Sulfate IVPUSH Q2H PRN PAIN LEVEL 6-10 Ondansetron HCl 4 mg 03/31/20 15:20 Zofran Injection IVPUSH Q6H PRN NAUSEA AND/OR VOMITING Promethazine HCl 12.5 mg 03/31/20 15:20 Phenergan Injection - IVPUSH Q6H PRN NAUSEA-FOR RESCUE AFTER 15 MIN Urine Test Results Urine Color Yellow 03/30/20 17:00 Urine Appearance Error 03/30/20 17:00 Urine pH 5.0 (5.0-8.0) 03/30/20 17:00 Ur Specific [place] 1.032 (1.010-1.035) 03/30/20 17:00 Urine Protein 1+ (NEGATIVE) H 03/30/20 17:00 Urine Glucose (UA) Negative (NEGATIVE) 03/30/20 17:00 Urine Ketones 3+ (NEGATIVE) H 03/30/20 17:00 Urine Blood 3+ (NEGATIVE) H 03/30/20 17:00 Urine Nitrite Negative (NEGATIVE) 03/30/20 17:00 Urine Bilirubin Negative (NEGATIVE) 03/30/20 17:00 Ur Leukocyte Esterase Negative (NEGATIVE) 03/30/20 17:00 Pelvic US: shows moderate right hydronephrosis with no obvious calculi or renal mass.no mass or stone reported. Transvaginal US : single live IUP with gestation age of 19weeks, with HR of 159, weights 274gm , uterine cervix measured 4.4cm in sagital length without dilatation . ASSESSMENT AND PLAN: This aptient is a 39yof , 19 weeks , with a PMHx of a childhood unknown kidney disease, with recurrent UTI's with previous pregnancies presents to ED with Right lower back pain,with CVA tenderness on the right side and was found to have moderate hydronephrosis. #POD#0 s/p cystoscopy R JJ stent insertion by Dr dimitri Aguilar, due to having Moderate Hydronephrosis on IV antibiotic ceftriaxone 1gm daily monitor , ID and urology on the case #:OBGYN consult. MVI DVT Prophylaxis: will hold Heparin due to having hematuria , reevalaute in am
--- NOTE | 2020-03-31 16:33 | CON.ID ---
Consult Referred by:: hospitalist - History of Present Illness Chief Complaint: right flank pain History of Present Illness: 39 yo female 19 weeks IUP presents with 24 hours of right flank pain us with right hydronephrosis vomiting times 3 yesterday history of utis in the past none recently has been uneventful seen by urology - placement of ureteral stent started on ceftriaxone for possible UTI 3rd child, has 2 kids at home - History Source History Provided By: Patient Limitations to Obtaining History: Language Barrier - Past Medical History Renal/: Yes: UTI, Other (unknown renal disease as child) ...LMP: 11/21/19 ...: Yes - Past Surgical History Past Surgical History: Yes: None - Alcohol/Substance Use Hx Alcohol Use: No History of Substance Use: reports: None - Smoking History Smoking history: Never smoked Have you smoked in the past 12 months: No - Social History Usual Living Arrangement: With Spouse ADL: Independent Place of : Other ([place]) History of Recent Travel: No Home Medications - Allergies Allergies/Adverse Reactions: Allergies Allergy/AdvReac Type Severity Reaction Status Date / Time No Known Allergies Allergy Verified 03/30/20 13:38 - Home Medications Home Medications: Ambulatory Orders Cephalexin [Keflex] 500 mg PO BID 7 Days #14 capsule 04/01/20 Family Medical History Family Hx Cancer: Sister (and cousin with ovarian cancer) Family Hx Diabetes: Mother Review of Systems - Review of Systems Constitutional: reports: No Symptoms. denies: Chills, Fever Eyes: reports: No Symptoms HENT: reports: No Symptoms Neck: reports: No Symptoms Cardiovascular: reports: No Symptoms. denies: Chest Pain, Edema Respiratory: denies: Cough, SOB Gastrointestinal: reports: Vomiting (resolved) Physical Exam Vital Signs: Vital Signs Temperature 98.3 F 03/31/20 06:00 Pulse Rate 76 03/31/20 15:07 Respiratory Rate 18 03/31/20 15:07 Blood Pressure 116/63 03/31/20 15:07 O2 Sat by Pulse Oximetry (%) 99 03/31/20 15:07 Constitutional: Yes: Well Nourished, No Distress, Calm Eyes: Yes: Conjunctiva Clear HENT: Yes: Atraumatic, Normocephalic. No: Thrush Neck: Yes: Supple, Trachea Midline Cardiovascular: Yes: Regular Rate and Rhythm Respiratory: Yes: Regular, CTA Bilaterally Gastrointestinal: Yes: Normal Bowel Sounds, Other (gravid uterus) Renal/: Yes: CVA Tenderness - Right Musculoskeletal: Yes: WNL Extremities: Yes: WNL Edema: No Psychiatric: Yes: Alert, Oriented Labs: CBC, BMP 03/31/20 07:33 03/31/20 07:33 cultures pending Imaging - Results Ultrasound: Report Reviewed Problem List - Problems (1) Hydronephrosis Code(s): N13.30 - UNSPECIFIED HYDRONEPHROSIS (2) Leukocytosis Code(s): D72.829 - ELEVATED WHITE BLOOD CELL COUNT, UNSPECIFIED (3) Code(s): Z34.90 - ENCNTR FOR SUPRVSN OF NORMAL , UNSP, UNSP TRIMESTER Assessment/Plan right hydronephrosis leukocytosis IUP 19 weeks cannot r/o UTI continue ceftriaxone f/u cultures f/u with urologist d/w hospitalist
[2020-03-31] MEDS ORDERED: PRENATAL VITAMINS W/ FOLIC ACID TABLET (FP) PO SCH (16:45)
[2020-03-31] MEDS ORDERED: ceFAZolin SODIUM 1 GM VIAL ONE (16:51)
[2020-03-31] MEDS ORDERED: ceFAZolin SODIUM 1 GM VIAL IVPB ONE (16:52)
[2020-03-31] MEDS ORDERED: IOHEXOL 180 MG/1 ML ML IT ONE (17:06)
[2020-03-31] MEDS: SODIUM CHLORIDE 1,000 ML IV SCH (22:28)
[2020-04-01] MEDS: SODIUM CHLORIDE 1,000 ML IV SCH ×2 (04:35→11:17)
[2020-04-01 07:54] LABS: HEMATOCRIT 32.2 % (32.4-45.2); HEMOGLOBIN 10.8 GM/dL (10.7-15.3); MCH 32.4 pg (25.7-33.7); MCHC 33.7 g/dl (32.0-36.0); MEAN CELL VOLUME 96.2 fl (80-96); MEAN PLT VOLUME 7.8 fl (7.5-11.1); PLATELET COUNT 266 K/MM3 (134-434); RBC 3.34 M/mm3 (3.60-5.2); RDW 13.6 % (11.6-15.6); WHITE BLOOD COUNT 13.3 K/mm3 (4.0-10.0)
[2020-04-01 08:12] LABS: BLOOD UREA NITROGEN 5.7 mg/dL (7-18); CALCIUM 8.1 mg/dL (8.5-10.1); CREATININE 0.6 mg/dL (0.55-1.3); MAGNESIUM 1.9 mg/dL (1.8-2.4); PHOSPHOROUS 2.9 mg/dL (2.5-4.9); POTASSIUM 3.5 mmol/L (3.5-5.1)
[2020-04-01] MEDS ORDERED: CEFTRIAXONE 1 GM in DEXTROSE 5%-WATER - 50 ML IVPB SCH (10:00)
[2020-04-01] MEDS ORDERED: PRENATAL VITAMINS W/ FOLIC ACID TABLET (FP) PO SCH (10:00)
--- NOTE | 2020-04-01 10:16 | PN ---
JEFFREY Lindsey Note Chief Complaint: pt feels better, no further R flank pain History of Present Illness: POD 1 s/p cysto and R JJ Stent insertion - Objective Vital Signs: Vital Signs Temperature 98.2 F 04/01/20 09:42 Pulse Rate 95 H 04/01/20 09:42 Respiratory Rate 04/01/20 09:42 Blood Pressure 118/66 04/01/20 09:42 O2 Sat by Pulse Oximetry (%) 98 04/01/20 09:42 Constitutional: Yes: Well Nourished, No Distress, Calm Gastrointestinal: Yes: WNL, Normal Bowel Sounds, Soft Genitourinary: No: Bladder Distention, CVA Tenderness - Right Labs/Additional Data: CBC, BMP 04/01/20 07:15 04/01/20 07:15 INR, PTT INR 0.97 (0.83-1.09) 03/31/20 00:05 Problem List - Problems (1) Code(s): Z34.90 - ENCNTR FOR SUPRVSN OF NORMAL , UNSP, UNSP TRIMESTER (2) Hydronephrosis Assessment/Plan: OK for disch. f/u in my office 1 mo Code(s): N13.30 - UNSPECIFIED HYDRONEPHROSIS
--- NOTE | 2020-04-01 11:09 | OP ---
DATE OF OPERATION: 03/31/2020 PREOPERATIVE DIAGNOSIS: Right hydronephrosis. POSTOPERATIVE DIAGNOSIS: Right hydronephrosis. PROCEDURE: Cystoscopy, right double-J stent insertion. SURGEON: Yordan Bruce MD RESPIRATORY THERAPY DIRECTOR: None. ANESTHESIA: Spinal. ANESTHESIOLOGIST: Vincenzo Maldonado MD SPECIMENS: None. CULTURES: None. DRAINS: A 6-[place] 24-cm right double-J stent. ESTIMATED BLOOD LOSS: None. COMPLICATION: None. PROCEDURE: Patient was brought in the operating room, placed on the operating room in the supine position. After administration of spinal anesthesia, intravenous antibiotics were administered and the patient was placed in the dorsal lithotomy position. The vagina and perineum were prepped and draped in usual sterile manner. The 22-[place]an cystoscope was inserted into the bladder with the obturator in place. The obturator was removed and urine was evacuated. A 30-degree telescope was inserted. Cystoscopy was performed. This demonstrated no foreign bodies, tumors or stones. There was some inflammation surrounding the right ureteral orifice. Right ureteral orifice was cannulated with a 0.038 guidewire which was advanced to the level of the right renal pelvis under minimal fluoroscopic guidance. Dual-lumen catheter was inserted. Retrograde pyelogram was done, again with minimal fluoroscopy just to visualize the collecting system of the kidney which was moderately dilated. The guidewire was left coiled in the renal pelvis and the dual-lumen catheter was removed and a 6-[place] 24-cm right double-J stent was inserted over the guidewire under direct visual and minimal fluoroscopic guidance, leaving 1 coil in the renal pelvis and 1 coil in the bladder. The bladder was emptied, cystocope removed. Patient tolerated the procedure well, transferred to recovery in stable condition. YORDAN BRUCE M.D. [id number]
--- NOTE | 2020-04-01 11:59 | CONS ---
DATE OF CONSULTATION: 04/01/2020 REASON FOR CONSULTATION: 19 weeks, rule out pyelonephritis and rule out renal colic. HISTORY: Patient is a 39-year-old female, 3, para 2-0-0-2, with 2 normal previous vaginal deliveries, at present time 19 weeks , who has care elsewhere. States that her has been uncomplicated so far and has appointment for anatomy sonogram next week, was admitted with 24 hours' right flank pain and had nausea, vomiting. No fever and chills. She had a renal sonogram which showed a moderate right-sided hydronephrosis. On admission, she had leukocytosis, WBC of 14, hemoglobin 12, hematocrit 36, BUN 9.3 and creatinine of 0.9. Her urine had showed 3+ blood, nitrite was negative, and had 18 WBCs and 374 RBCs. Patient had had right ureter stent placed. When I saw her, she appeared to be comfortable, alert and oriented, and states that the pain has significantly improved. Abdomen was soft, nontender. Minimal right CVA tenderness. Uterus was 19 week size with heart present, and also she states that the baby moves. Pelvic exam: She did not have any vaginal bleeding, therefore the exam was deferred. IMPRESSION: Right hydronephrosis, rule out renal stone versus pyelonephritis, presently on ceftriaxone. Continue present antibiotic, awaiting urine culture. If urine culture negative, she can be discharged home on p.o. antibiotic and advised to follow up with her REPATCHER as soon as possible after discharge, and also urology followup for removal of stent at later date. PÉREZ CORONA M.D. [id number]
[2020-04-01] MEDS ORDERED: HEPARIN NA (PORCINE) 5,000 UNITS/ML 1ML VIAL SQ SCH (14:00)
--- NOTE | 2020-04-01 14:22 | PN ---
Progress Note (short form) - Note Progress Note: s/p stent placement for Right hydronephrosis notes some dysuria at the end of her urinary stream, flank pain has resolved Vital Signs Period Temp Pulse Resp BP Sys/Faustin Pulse Ox Last 24 Hr 98.1 F-100.9 F 70-95 13-20 93-118/50-66 97-100 cor-rrr lungs clear abd-no cvat +uterus ext no edema CBC, BMP 04/01/20 07:15 04/01/20 07:15 Microbiology 03/30/20 17:00 Urine - Urine Clean Catch Urine Culture - Final NO GROWTH OBTAINED 03/31/20 00:05 Blood - Peripheral Venous Blood Culture - Preliminary NO GROWTH OBTAINED AFTER 24 HOURS, INCUBATION TO CONTINUE FOR 4 DAYS. 03/31/20 00:05 Blood - Peripheral Venous Blood Culture - Preliminary NO GROWTH OBTAINED AFTER 24 HOURS, INCUBATION TO CONTINUE FOR 4 DAYS. a/p right hydronephrosis s/p stent placement IUP 19 weeks cultures negative day #3 rocephin can switch to po keflex for one week when ready for discharge f/u with OB and urology
--- NOTE | 2020-04-01 17:30 | PN ---
Teaching Attending Note Name of Resident: uD Thurman ATTENDING PHYSICIAN STATEMENT I saw and evaluated the patient. I reviewed the resident's note and discussed the case with the resident. I agree with the resident's findings and plan as documented. SUBJECTIVE: No fever or chills , minimal pain in suprapubic area and minimally pink urine. N o N.V . feels much better NAD, awake, alert, comfortable CV : RRR, 2/6 SM RUSb and 3/6 SM at rest of areas. Lungs: CTAB Ext : No edema or erythema on upper or lower extremities Abd: soft, prominent, TTP in suprapubic area, RLQ,. ASSESSMENT AND PLAN: 39 y/o lady with h/o , UTIs, who presented with abd pain and was found to have hydronephrosis 1- R sided hydro 2- Possible UTI 3- 19 week plan : - hematuria improved , normal and expected after stent placement - stent to be evaluated by uro in 1 month - urine cx neg but since she is and a stent was placed with treat with Abx for 1 week with keflex - f/u with pcpc and DIRECTOR CUSTOM - she was informed about her heart murmur and the need to evaluate if persists after . likely flow murmur - project accountant phone was used Dc home
--- NOTE | 2020-04-01 17:31 | DS ---
Physical Exam: SUBJECTIVE: Patient seen and examined bedside. In no acute distress. Reports some pink tinged urine, but denies dsyuria or polyuria. Denies fever, chills, SOB, or contractions. Reports mild Right lower abdominal pain and back pain that has improved. OBJECTIVE: Vital Signs Period Temp Pulse Resp BP Sys/Faustin Pulse Ox Last 24 Hr 98.1 F-100.9 F 70-95 14-20 93-118/50-66 97-100 PHYSICAL EXAM GENERAL: The patient is awake, alert, and fully oriented, in no acute distress. HEAD: Normal with no signs of trauma. EYES: PERRL, extraocular movements intact, sclera anicteric, conjunctiva clear. ENT: moist mucous membranes LUNGS: Breath sounds equal, CTA BL HEART: Regular rate and rhythm, with systolic murmur ABDOMEN: 19 weeks . Mildly tender to palpation in RLQ and suprapubic region. EXTREMITIES: No edema BL, no CVA tenderness NEUROLOGICAL: Cranial nerves II through XII grossly intact. Normal speech PSYCH: Normal mood, normal affect. SKIN: Warm, dry, normal turgor, no rashes or lesions noted Laboratory Tests 03/30/20 03/30/20 03/30/20 14:00 14:20 17:00 WBC 14.4 H RBC 3.76 Hgb 12.2 Hct 36.1 MCV 96.0 MCH 32.5 MCHC 33.8 RDW 13.2 Plt Count 240 MPV 9.0 Absolute Neuts (auto) 11.1 H Neutrophils % 77.5 Lymphocytes % 14.3 Monocytes % 6.2 Eosinophils % 0.9 Basophils % 1.1 Nucleated RBC % 0 PT with INR INR Sodium 135 L Potassium 5.6 H Chloride 106 Carbon Dioxide 21 Anion Gap 8 BUN 9.3 Creatinine 0.9 Est GFR (CKD-EPI)AfAm 92.70 Est GFR (CKD-EPI)NonAf 79.98 Random Glucose 82 Calcium 8.4 L Phosphorus Magnesium Total Bilirubin 0.4 AST 67 H ALT 20 Alkaline Phosphatase 62 Total Protein 7.1 Albumin 3.1 L Lipase 72 L Urine Color Yellow Urine Appearance Error Urine pH 5.0 Ur Specific [place] 1.032 Urine Protein 1+ H Urine Glucose (UA) Negative Urine Ketones 3+ H Urine Blood 3+ H Urine Nitrite Negative Urine Bilirubin Negative Urine Urobilinogen 1.0 Ur Leukocyte Esterase Negative Urine WBC (Auto) 18 Urine RBC (Auto) 374 Urine Casts (Auto) 2 U Epithel Cells (Auto) >36 Urine Bacteria (Auto) 314 COVID-19 (ROD) 03/31/20 03/31/20 03/31/20 00:05 04:40 07:33 WBC 15.3 H RBC 3.22 L Hgb 10.4 L Hct 30.6 L D MCV 95.1 MCH 32.2 MCHC 33.9 RDW 13.3 Plt Count 249 MPV 7.5 D Absolute Neuts (auto) 12.2 H Neutrophils % 79.4 Lymphocytes % 13.1 Monocytes % 6.9 Eosinophils % 0.2 Basophils % 0.4 Nucleated RBC % 0 PT with INR 11.50 INR 0.97 Sodium Potassium Chloride Carbon Dioxide Anion Gap BUN Creatinine Est GFR (CKD-EPI)AfAm Est GFR (CKD-EPI)NonAf Random Glucose Calcium Phosphorus Magnesium Total Bilirubin AST ALT Alkaline Phosphatase Total Protein Albumin Lipase Urine Color Urine Appearance Urine pH Ur Specific [place] Urine Protein Urine Glucose (UA) Urine Ketones Urine Blood Urine Nitrite Urine Bilirubin Urine Urobilinogen Ur Leukocyte Esterase Urine WBC (Auto) Urine RBC (Auto) Urine Casts (Auto) U Epithel Cells (Auto) Urine Bacteria (Auto) COVID-19 (ROD) Not detected 03/31/20 04/01/20 04/01/20 07:33 07:15 07:15 WBC 13.3 H RBC 3.34 L Hgb 10.8 Hct 32.2 L MCV 96.2 H MCH 32.4 MCHC 33.7 RDW 13.6 Plt Count 266 MPV 7.8 Absolute Neuts (auto) Neutrophils % Lymphocytes % Monocytes % Eosinophils % Basophils % Nucleated RBC % PT with INR INR Sodium 140 139 Potassium 3.5 3.5 Chloride 111 H 109 H Carbon Dioxide 22 22 Anion Gap 8 8 BUN 5.7 L 5.7 L Creatinine 0.7 0.6 Est GFR (CKD-EPI)AfAm 125.61 132.14 Est GFR (CKD-EPI)NonAf 108.38 114.01 Random Glucose 79 77 Calcium 7.5 L 8.1 L Phosphorus 2.8 2.9 Magnesium 1.9 1.9 Total Bilirubin 0.6 AST 12 L ALT 13 Alkaline Phosphatase 49 Total Protein 5.7 L Albumin 2.6 L Lipase Urine Color Urine Appearance Urine pH Ur Specific [place] Urine Protein Urine Glucose (UA) Urine Ketones Urine Blood Urine Nitrite Urine Bilirubin Urine Urobilinogen Ur Leukocyte Esterase Urine WBC (Auto) Urine RBC (Auto) Urine Casts (Auto) U Epithel Cells (Auto) Urine Bacteria (Auto) COVID-19 (ROD) HOSPITAL COURSE: A 39 yo Female, currently 19 weeks , with a PMHx of a childhood unknown kidney disease, hx of recurrent UTI w/, positive PAPS smear, and an extensive FHx of ovarian cancer, presented to the ED with right lower back pain, dysuria, hematuria, nausea, & vomiting. Patient was admitted to the hospital for UTI r/o pyelonephritis and r/o nephrolithiasis. Patient had an elevated WBC. Was started on IV rocephin. A pelvic US was done and showed moderate right hydronephrosis with no obvious calculi or renal mass. Urology was consulted and Dr. Ware performed a cystoscopy with R JJ stent insertion. The patient tolerated the procedure well. Her pain had improved. She had mild hematuria after without dysuria. She was monitored, her white count decreased. Her urine cultures came back negative. She was seen and cleared by [facility]. She was discharged on 1 week of keflex and told to follow up with her [facility] within the week for continuity of care and to repeat her UA after completing antibiotics. Patient needs to follow up in Dr. Ware office in 1 month to plan for stent removal. Patient was found to have a systolic murmur on exam, most likely due to . Patient was advised to follow up with her PCP after having the baby to see if any further work up for mumur needs to be done. Date of Admission:03/30/20 Date of Discharge: 04/01/20 Minutes to complete discharge: 36 Discharge Summary Problems reviewed: Yes Reason For Visit: ABDOMINAL PAIN Current Active Problems Hydronephrosis (Acute) Intractable abdominal pain (Acute) (Acute) Condition: Stable - Instructions Diet, Activity, Other Instructions: Visit: You came to the hospital with right lower back pain, pain with urination, & blood in your urine, and nausea and vomiting. In the Emergency room they did an ultrasound of your kidneys that showed you had fluid backup in your right kidney. Because of your pain and symptoms, there was concern that you had a kidney stone. The urologist performed a procedure in which they placed a stent in your ureter to allow any stone that was there to pass. You were also placed on antibiotics due to concern that your urine was positive for a bacterial infection. While in the hospital, we heard a systolic heart murmur that is mostly likely due to your and not anything emergent. You are currently feeling better and are now stable for discharge. Medications: Continue taking your vitamins daily START taking keflex 500 mg twice a day (once in the morning and once in the evening) starting tomorrow morning. Take these for 1 week. Follow up: Please follow up with your [facility] upon being discharged. Call and make an appointment to follow up. Your urine will have to be rechecked after completing your antibiotics. Please follow up with the urologist regarding the stent placed in your ureter. Call and make an appointment to be seen in 1 month. Please follow up with your primary care provider regarding your cardiac murmur and any further workup it may require. Other: If for any reason your feel worse, your pain increases, you have increased blood in your urine, increased pain, fever, chills, nausea, vomiting or diarrhea, please call you 911 or go to the nearest emergency room. Referrals: Sujata Comer MD [Staff Physician] - Yordan Ware MD [Staff Physician] - 1 Month Disposition: HOME - Home Medications Comprehensive Discharge Medication List: Ambulatory Orders Cephalexin [Keflex] 500 mg PO BID 7 Days #14 capsule 04/01/20 This patient is new to me today: No Emergency Visit: Yes ED Registration Date: 03/30/20 Care time: The patient presented to the Emergency Department on the above date and was hospitalized for further evaluation of their emergent condition. Critical Care patient: No - Discharge Referral Referred to [facility] No ATTENDING PHYSICIAN STATEMENT I saw and evaluated the patient. I reviewed the resident's note and discussed the case with the resident. I agree with the resident's findings and plan as documented. SUBJECTIVE: OBJECTIVE: ASSESSMENT AND PLAN:
[2020-04-01 17:43] VITALS: BP 116/69; PULSE 82; TEMP 98.2
== END 2020-04-01 19:06 | disposition home or self-care (01) | DRG 566 ==
LOC: JER 13:34 → JERBED 20:19 → OBSVTOIN 23:36 → J6WEST-2 03-31 21:21
PROVIDERS: ADMIT Internal Medicine; ATTEND Internal Medicine
PROC: 0T768DZ Dilation of Right Ureter with Intraluminal Device, Via Natural or Artificial Opening Endoscopic (ICD-10-PCS; principal; 2020-03-31 16:00)
PROC: BT1DZZZ Fluoroscopy of Right Kidney, Ureter and Bladder (ICD-10-PCS; 2020-03-31 16:00)
DX: O26.832 Pregnancy related renal disease, second trimester (principal); E88.09 Other disorders of plasma-protein metabolism, not elsewhere classified; R11.2 Nausea with vomiting, unspecified; D72.829 Elevated white blood cell count, unspecified; O23.42 Unspecified infection of urinary tract in pregnancy, second trimester; N13.30 Unspecified hydronephrosis; Z3A.19 19 weeks gestation of pregnancy; O26.892 Other specified pregnancy related conditions, second trimester; R31.9 Hematuria, unspecified
CPT/HCPCS: 36415; 76000-TC-FY; 76775-TC; 76816-TC; 76817-TC; 80048; 80053; 81003; 83690; 83735; 84100; 85025; 85027; 85610; 87040; 87086; 93005; 93010; 94760; 99285-25; G0378; J0131; J1644; U0003

== ENCOUNTER 2020-04-09 13:12 | Observation (INO) | payer OTHER ==
[2020-04-09 13:18] VITALS: BMI 31.6
--- NOTE | 2020-04-09 14:59 | PDOC ---
History of Present Illness - General Chief Complaint: Hematuria Stated Complaint: ABD PAIN/ VAGINAL BLEEDING 2O WKS PRG Time Seen by Provider: 04/09/20 13:28 History Source: Patient Exam Limitations: No Limitations - History of Present Illness Travel History: No Initial Comments: 04/09/20 15:12 39-year-old female presents to the ED with complaints of right flank pain along with hematuria since this morning. Patient states was admitted here a few weeks ago for intractable pain and kidney stones and saw Yordan Ghotrais who last week had did a procedure which she states was a catheter through her vagina but unable to explained what the procedure was. Patient is currently 20 weeks And denies any vaginal discharge, vaginal bleeding. Patient also denies fever, chills or nausea. Timing/Duration: reports: constant Quality: reports: mild, sharpness Abdominal Pain Onset Location: reports: flank Pain Radiation: reports: RLQ Activities at Onset: reports: none Aggravating Factors: improves with: None Alleviating Factors: improves with: None Past History - Travel History Traveled outside of the country in the last 30 days: No Close contact w/someone who was outside of country & ill: No - Medical History Allergies/Adverse Reactions: Allergies Allergy/AdvReac Type Severity Reaction Status Date / Time No Known Allergies Allergy Verified 04/09/20 13:18 Home Medications: Ambulatory Orders Cephalexin [Keflex] 500 mg PO BID 7 Days #14 capsule 04/01/20 Cefpodoxime Proxetil [Vantin -] 200 mg PO Q12H #20 tablet 04/11/20 Cephalexin Monohydrate [Keflex -] 500 mg PO BID 5 Days #10 capsule 04/11/20 COPD: No Kidney Stones: Yes - Reproductive History Is Patient Now?: Yes - Immunization History Immunization Up to Date: Yes - Psycho-Social/Smoking History Smoking History: Never smoked Have you smoked in the past 12 months: No - Substance Abuse Hx (Audit-C & DAST Scrn) How often the patient has a drink containing alcohol: Never Score: In Men: 4 or > Positive; In Women: 3 or > Positive: 0 Screen Result (Pos requires Nsg. Audit-10AR): Negative Review of Systems - Review of Systems Able to Perform ROS?: Yes Constitutional: No: Symptoms Reported HEENTM: No: Symptoms Reported Respiratory: No: Symptoms reported Cardiac (ROS): No: Symptoms Reported ABD/GI: No: Symptoms Reported : Yes: Flank Pain, Hematuria Musculoskeletal: No: Symptoms Reported Integumentary: No: Symptoms Reported Neurological: No: Symptoms reported Endocrine: No: Symptoms Reported Hematologic/Lymphatic: No: Symptoms Reported *Physical Exam - Vital Signs Last Vital Signs Temp Pulse Resp BP Pulse Ox 98 F 91 H 18 137/64 99 04/09/20 13:14 04/09/20 13:14 04/09/20 13:14 04/09/20 13:14 04/09/20 13:14 - Physical Exam General Appearance: Yes: Nourished, Appropriately Dressed. No: Apparent Distress HEENT: negative: Pale Conjunctivae Neck: negative: Decreased range of motion Respiratory/Chest: negative: Respiratory Distress Cardiovascular: positive: Regular Rhythm, Regular Rate. negative: Murmur Gastrointestinal/Abdominal: positive: Soft, Tenderness (Right flank) Musculoskeletal: positive: CVA Tenderness (R) Extremity: positive: Normal Inspection Integumentary: positive: Warm, Moist Neurologic: positive: Motor Strength 5/5 (Ambulatory) ED Treatment Course - LABORATORY CBC & Chemistry Diagram: 04/11/20 07:20 04/11/20 07:20 - RADIOLOGY Radiology Studies Ordered: Category Date Time Status KIDNEY / RENAL US [US] Stat Ultrasound 04/09/20 14:12 Ordered FOLLOW-UP US [US] Stat Ultrasound 04/09/20 14:12 Ordered Medical Decision Making - Medical Decision Making 04/09/20 15:14 Chief complaint: Patient here with right flank pain along with hematuria rating to her back. Patient had a procedure performed by Dr. Cecil Ly which she describes a catheter through her vagina which and listening to her story may have been a stent placement. Exam: Patient with right CVA right flank tenderness Plan: CBC, comp, urine and ultrasound ordered 04/09/20 15:19 Laboratory Tests 03/30/20 03/30/20 03/30/20 14:00 14:20 17:00 WBC 14.4 H Hgb 12.2 Hct 36.1 Absolute Neuts (auto) 11.1 H Sodium 135 L Potassium 5.6 H Calcium 8.4 L AST 67 H Urine Protein Urine Ketones 3+ H Urine Blood Ur Leukocyte Esterase Urine WBC (Auto) Urine RBC (Auto) 04/09/20 04/09/20 14:52 14:52 WBC 14.7 H Hgb 12.5 Hct 37.0 Absolute Neuts (auto) 11.5 H Sodium Potassium Calcium AST Urine Protein 2+ H Urine Ketones Urine Blood 3+ H Ur Leukocyte Esterase 2+ H Urine WBC (Auto) 303 Urine RBC (Auto) 7360 Ultrasound results pending. Patient ordered for ceftriaxone based on physical exam /elevated white count concerning for infected stone 04/09/20 15:33 Ultrasound shows moderate to mild right renal hydronephrosis with proximal hydroureter again seen without interval change. Ultrasound for shows a single live intrauterine gestation at 20 weeks[address] Call placed to Dr. Ware to discuss disposition Discharge - Discharge Information Problems reviewed: Yes Clinical Impression/Diagnosis: Pyelonephritis Condition: Good - Additional Discharge Information - Follow up/Referral - Patient Discharge Instructions - Post Discharge Activity
[2020-04-09 15:07] LABS: BASO % 0.8 % (0-2.0); EOS % 1.3 % (0-4.5); HEMOGLOBIN 12.5 GM/dL (10.7-15.3); LYMPH % 12.8 % (8-40); MCH 32.6 pg (25.7-33.7); MCHC 33.8 g/dl (32.0-36.0); MEAN CELL VOLUME 96.4 fl (80-96); MEAN PLT VOLUME 8.2 fl (7.5-11.1); MONO % 6.6 % (3.8-10.2); NEUT % 78.5 % (42.8-82.8); PLATELET COUNT 276 K/MM3 (134-434); RBC 3.83 M/mm3 (3.60-5.2); RDW 13.5 % (11.6-15.6); WHITE BLOOD COUNT 14.7 K/mm3 (4.0-10.0)
[2020-04-09 15:14] LABS: EPI CELLS >36 /uL (0-25.1); HYALINE CASTS 2 /uL (0-3.1); PH,URINE 7.5 (5.0-8.0); URINE APPEARANCE CLOUDY; URINE BACTERIA 1222 /uL (0-1359); URINE BILIRUBIN NEGATIVE (NEGATIVE); URINE COLOR RED; URINE GLUCOSE (UA) NEGATIVE (NEGATIVE); URINE KETONE NEGATIVE (NEGATIVE); URINE LEUK ESTERASE 2+ (NEGATIVE); URINE NITRITE NEGATIVE (NEGATIVE); URINE PROTEIN 2+ (NEGATIVE); URINE RBC 7360 /uL (0-23.9); URINE UROBILINOGEN 0.2 mg/dL (0.2-1.0); URINE WBC 303 /uL (0-25.8)
[2020-04-09] MEDS ORDERED: CEFTRIAXONE 1 GM in DEXTROSE 5%-WATER - 50 ML IVPB ONE (15:20)
[2020-04-09] MEDS ORDERED: CEFTRIAXONE 1 GM/50 ML BAG ONE (15:39)
[2020-04-09 16:00] LABS: ALBUMIN 3.3 g/dl (3.4-5.0); BILIRUBIN,TOTAL 0.6 mg/dL (0.2-1); BLOOD UREA NITROGEN 6.7 mg/dL (7-18); CALCIUM 8.7 mg/dL (8.5-10.1); CREATININE 0.7 mg/dL (0.55-1.3); MAGNESIUM 1.9 mg/dL (1.8-2.4); POTASSIUM 3.9 mmol/L (3.5-5.1); TOT PROT 7.2 g/dl (6.4-8.2)
--- NOTE | 2020-04-09 16:15 | PDOC ---
*Physical Exam - Vital Signs Last Vital Signs Temp Pulse Resp BP Pulse Ox 98 F 91 H 18 137/64 99 04/09/20 13:14 04/09/20 13:14 04/09/20 13:14 04/09/20 13:14 04/09/20 13:14 ED Treatment Course - LABORATORY CBC & Chemistry Diagram: 04/09/20 14:52 04/09/20 14:52 - ADDITIONAL ORDERS Additional order review: Laboratory Results 04/09/20 04/09/20 14:52 14:52 Sodium 137 Potassium 3.9 Chloride 104 Carbon Dioxide 22 Anion Gap 11 BUN 6.7 L Creatinine 0.7 Est GFR (CKD-EPI)AfAm 125.61 Est GFR (CKD-EPI)NonAf 108.38 Random Glucose 74 Calcium 8.7 Magnesium 1.9 Total Bilirubin 0.6 AST 24 ALT 18 Alkaline Phosphatase 74 Total Protein 7.2 Albumin 3.3 L Lipase 104 Urine Color Red Urine Appearance Cloudy Urine pH 7.5 D Ur Specific [place] 1.011 Urine Protein 2+ H Urine Glucose (UA) Negative Urine Ketones Negative Urine Blood 3+ H Urine Nitrite Negative Urine Bilirubin Negative Urine Urobilinogen 0.2 Ur Leukocyte Esterase 2+ H Urine WBC (Auto) 303 Urine RBC (Auto) 7360 Urine Casts (Auto) 2 U Epithel Cells (Auto) >36 Urine Bacteria (Auto) 1222 04/09/20 14:52 RBC 3.83 MCV 96.4 H MCHC 33.8 RDW 13.5 MPV 8.2 Neutrophils % 78.5 Lymphocytes % 12.8 Monocytes % 6.6 Eosinophils % 1.3 D Basophils % 0.8 - Medications Given in the ED: ED Medications Discontinued Medications Generic Name Dose Route Start Last Admin Trade Name Freq PRN Reason Stop Dose Admin Ceftriaxone Sodium 1 gm/ 50 mls @ 100 mls/hr 04/09/20 15:20 04/09/20 15:46 Dextrose IVPB 04/09/20 15:49 100 mls/hr ONCE ONE Administration Medical Decision Making - Medical Decision Making 04/09/20 16:14 Briefly this is a 39-year-old female complaining of right flank pain and hemat uria since this morning. Recent admission for kidney stones followed up with Jeff Ly. Currently awaiting a callback from Dr. Ly for disposition Labs show a white count of 14.7 H/H: 12.5/37 BUN and creatinine within normal limits Rest of labs noncontributory UA shows red urine with 3+ blood 2+ leuks and bacteria Patient given ceftriaxone in the ED Ultrasound shows mild to moderate right renal hydronephrosis and proximal hydroureter without interval change no gross renal stones are identified bilateral ultrasound shows single live intrauterine gestation of [address] yL who recommends admission to medicine vs [facility] for IV ABX and urology consultation Spoke to Dr Perez, pts [facility] who accepts patient under her service for admission. Discharge - Discharge Information Problems reviewed: Yes Clinical Impression/Diagnosis: Pyelonephritis - Admission Yes - Follow up/Referral - Patient Discharge Instructions - Post Discharge Activity
[2020-04-10] MEDS: ELECTROLYTE-148 SOLN 1,000 ML IV SCH (00:42)
--- NOTE | 2020-04-10 00:54 | PD.OB.PROG ---
Past Medical History - Primary Care Physician Documenting Provider Type: Laborist - Admission Chief Complaint: flank pain History of Present Illness: 39yo at 20 weeks presents with c/o hematuria, flank pain and right sided abdominal pain. Pt reports stent placemet secondary to renal stones. 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[employer]: Denies/None Cardio/Vascular: Denies/None Hepatobiliary: Denies/None Renal/: Renal Calculi, UTI ...: 6 ...Para: 2 ...Term: 2 ...: 0 ...Spon : 3 ...Induced : 0 ...Living Children: 2 ...EDC by Dates: 08/26/19 - Past Surgical History Past Surgical History: Yes: None, Stent - Smoking History Smoking history: Never smoked Have you smoked in the past 12 months: No - Alcohol/Substance Use Hx Alcohol Use: No History of Substance Use: reports: None - Social History ADL: Independent History of Recent Travel: No Review of Systems - Review of Systems Constitutional: reports: No Symptoms Eyes: reports: No Symptoms HENT: reports: No Symptoms Neck: reports: No Symptoms Cardiovascular: reports: No Symptoms Respiratory: reports: No Symptoms Gastrointestinal: reports: No Symptoms Genitourinary: reports: Flank Pain, Hematuria Breasts: reports: No Symptoms Reported Musculoskeletal: reports: No Symptoms Integumentary: reports: No Symptoms Neurological: reports: No Symptoms Endocrine: reports: No Symptoms Hematology/Lymphatic: reports: No Symptoms Psychiatric: reports: No Symptoms Physical Exam - Obstetrical Vital Signs: Vital Signs Temperature 98.5 F 04/09/20 22:00 Pulse Rate 87 04/09/20 22:00 Respiratory Rate 20 04/09/20 22:00 Blood Pressure 116/74 04/09/20 22:00 O2 Sat by Pulse Oximetry (%) 98 04/09/20 22:00 Constitutional: Yes: Well Nourished - Abdominal Exam/OB Fundal Height: 20 Number of Fetuses: Single Contractions: No - Vaginal Exam/OB Vaginal Exam Deferred: Yes Vaginal Bleeding: No - Physical Exam Musculoskeletal: Yes: WNL Extremities: Yes: WNL - Labs Lab Results: CBC, BMP 04/09/20 14:52 04/09/20 14:52 Assessment/Plan 39yo at 20 weeks with probably pyelo no acute ob issues plan as per pt's sericulturist Dr. Sweeney
--- NOTE | 2020-04-10 03:17 | HP ---
Past Medical History - Primary Care Physician PCP:: Isabella Saunders - Admission Chief Complaint: 20 week Hydronephrosis. Pyelonepritits. Hematuria. abdominal pain History of Present Illness: 39 yo EDC ega 20 week admitted with abdominal pain, hematuria, hydronephrosis and pyelo History Source: Patient Limitations to Obtaining History: No Limitations - Past Medical History Renal/: Yes: UTI, Other (unknown renal disease as child) ...: 6 ...Para: 2 ...Term: 2 ...: 0 ...Spon : 3 ...Induced : 0 ...Living Children: 2 ...EDC by Dates: 08/26/19 - Past Surgical History Past Surgical History: Yes: None, Stent Hx Myomectomy: No Hx Transabdominal Cerclage: No - Smoking History Smoking history: Never smoked Have you smoked in the past 12 months: No - Alcohol/Substance Use Hx Alcohol Use: No History of Substance Use: reports: None - Social History ADL: Independent History of Recent Travel: No Home Medications - Allergies Allergies/Adverse Reactions: Allergies Allergy/AdvReac Type Severity Reaction Status Date / Time No Known Allergies Allergy Verified 04/09/20 13:18 - Home Medications Home Medications: Ambulatory Orders Cephalexin [Keflex] 500 mg PO BID 7 Days #14 capsule 04/01/20 Family Medical History Family Hx Cancer: Sister (and cousin with ovarian cancer) Family Hx Diabetes: Mother Review of Systems - Review of Systems Constitutional: reports: No Symptoms Eyes: reports: No Symptoms HENT: reports: No Symptoms Neck: reports: No Symptoms Cardiovascular: reports: No Symptoms Respiratory: reports: No Symptoms Gastrointestinal: reports: No Symptoms Genitourinary: reports: No Symptoms Breasts: reports: No Symptoms Reported Musculoskeletal: reports: No Symptoms Integumentary: reports: No Symptoms Neurological: reports: No Symptoms Endocrine: reports: No Symptoms Hematology/Lymphatic: reports: No Symptoms Psychiatric: reports: No Symptoms Physical Exam - Maternity Vital Signs: Vital Signs Temperature 98.5 F 04/09/20 22:00 Pulse Rate 87 04/09/20 22:00 Respiratory Rate 20 04/09/20 22:00 Blood Pressure 116/74 04/09/20 22:00 O2 Sat by Pulse Oximetry (%) 98 04/09/20 22:00 - Labs Lab Results: CBC, BMP 04/09/20 14:52 04/09/20 14:52 Problem List - Problems (1) Pyelonephritis Code(s): N12 - TUBULO-INTERSTITIAL NEPHRITIS, NOT SPCF ACUTE OR CHRONIC (2) Hydronephrosis Code(s): N13.30 - UNSPECIFIED HYDRONEPHROSIS (3) Leukocytosis Code(s): D72.829 - ELEVATED WHITE BLOOD CELL COUNT, UNSPECIFIED Assessment/Plan hydronephrosis iup at 20 week pyelonephritis hematuria abdominal pain Plan IV antibiotics IV hydration
--- NOTE | 2020-04-10 12:04 | CON.GU ---
Consult Consult Specialty:: Reason for Consultation:: hydronephrosis - History of Present Illness Chief Complaint: R flank pain History of Present Illness: 39yo at 20 weeks gestation presents with c/o gross hematuria R flank and right sided abdominal pain. Pt s/p cysto and R JJ stent placement 03/31/20 for hyddronephrosis secondary to ? ureteral stone. Denies ctx, no lof, no vaginal bleeding. cons req. - History Source History Provided By: Patient, Medical Record - Past Medical History Renal/: Yes: UTI, Other (unknown renal disease as child) ...LMP: 11/20/19 ...: Yes - Past Surgical History Past Surgical History: Yes: None, Stent - Alcohol/Substance Use Hx Alcohol Use: No History of Substance Use: reports: None - Smoking History Smoking history: Never smoked Have you smoked in the past 12 months: No - Social History Usual Living Arrangement: With Spouse ADL: Independent History of Recent Travel: No Home Medications - Allergies Allergies/Adverse Reactions: Allergies Allergy/AdvReac Type Severity Reaction Status Date / Time No Known Allergies Allergy Verified 04/09/20 13:18 - Home Medications Home Medications: Ambulatory Orders Cephalexin [Keflex] 500 mg PO BID 7 Days #14 capsule 04/01/20 Family Medical History Family Hx Cancer: Sister (and cousin with ovarian cancer) Family Hx Diabetes: Mother Review of Systems - Review of Systems Gastrointestinal: reports: Abdominal Pain Genitourinary: reports: Flank Pain, Hematuria Physical Exam- Vital Signs: Vital Signs Temperature 98.4 F 04/10/20 07:28 Pulse Rate 86 04/10/20 07:28 Respiratory Rate 20 04/10/20 07:28 Blood Pressure 100/60 04/10/20 07:28 O2 Sat by Pulse Oximetry (%) 97 04/10/20 07:28 Constitutional: Yes: Well Nourished, No Distress, Calm Gastrointestinal: Yes: WNL, Normal Bowel Sounds, Soft Renal/: Yes: CVA Tenderness - Right. No: Bladder Distention, Win[place] Present, Hematuria Labs: CBC, BMP 04/09/20 14:52 04/09/20 14:52 Imaging - Results Ultrasound: Report Reviewed, Image Reviewed Problem List - Problems (1) Pyelonephritis Assessment/Plan: UCx, iv abxs, cont JJ stent Code(s): N12 - TUBULO-INTERSTITIAL NEPHRITIS, NOT SPCF ACUTE OR CHRONIC (2) Hydronephrosis Code(s): N13.30 - UNSPECIFIED HYDRONEPHROSIS (3) Leukocytosis Code(s): D72.829 - ELEVATED WHITE BLOOD CELL COUNT, UNSPECIFIED (4) Hematuria Code(s): R31.9 - HEMATURIA, UNSPECIFIED
[2020-04-11] MEDS: ELECTROLYTE-148 SOLN 1,000 ML IV SCH ×3 (01:25→09:44)
[2020-04-11 07:49] LABS: HEMATOCRIT 33.3 % (32.4-45.2); HEMOGLOBIN 11.1 GM/dL (10.7-15.3); MCH 32.1 pg (25.7-33.7); MCHC 33.3 g/dl (32.0-36.0); MEAN CELL VOLUME 96.4 fl (80-96); MEAN PLT VOLUME 7.5 fl (7.5-11.1); PLATELET COUNT 271 K/MM3 (134-434); RBC 3.45 M/mm3 (3.60-5.2); RDW 13.2 % (11.6-15.6); WHITE BLOOD COUNT 11.7 K/mm3 (4.0-10.0)
[2020-04-11 08:10] LABS: BLOOD UREA NITROGEN 5.3 mg/dL (7-18); CALCIUM 8.1 mg/dL (8.5-10.1); CREATININE 0.5 mg/dL (0.55-1.3)
--- NOTE | 2020-04-11 14:08 | PN ---
Progres Note Chief Complaint: pt w/o c/o, feels better, less pain, no further gross hematuria - Objective Vital Signs: Vital Signs Temperature 98.5 F 04/11/20 09:00 Pulse Rate 96 H 04/11/20 09:00 Respiratory Rate 20 04/11/20 09:00 Blood Pressure 110/66 04/11/20 09:00 O2 Sat by Pulse Oximetry (%) 97 04/11/20 09:00 Constitutional: Yes: Well Nourished, No Distress, Calm Gastrointestinal: Yes: WNL, Normal Bowel Sounds, Soft Genitourinary: Yes: WNL Kidneys: Yes: WNL Labs/Additional Data: CBC, BMP 04/11/20 07:20 04/11/20 07:20 Problem List - Problems (1) Pyelonephritis Assessment/Plan: urine cx noted, ok for disch on cefpodoxime 200 mg po bid x 10 days, rto 1 week Code(s): N12 - TUBULO-INTERSTITIAL NEPHRITIS, NOT SPCF ACUTE OR CHRONIC (2) Hydronephrosis Code(s): N13.30 - UNSPECIFIED HYDRONEPHROSIS (3) Leukocytosis Code(s): D72.829 - ELEVATED WHITE BLOOD CELL COUNT, UNSPECIFIED (4) Hematuria Code(s): R31.9 - HEMATURIA, UNSPECIFIED
[2020-04-11 16:53] VITALS: BP 102/53; PULSE 85; TEMP 98.4
--- NOTE | 2020-04-11 17:31 | DS ---
Physical Exam-COUNTER CHECKER Vital Signs: Vital Signs Temperature 98.4 F 04/11/20 16:47 Pulse Rate 85 04/11/20 16:47 Respiratory Rate 20 04/11/20 16:47 Blood Pressure 102/53 L 04/11/20 16:47 O2 Sat by Pulse Oximetry (%) 97 04/11/20 16:47 Constitutional: Yes: Well Nourished Gastrointestinal: Yes: WNL, Soft, Other (20cm) Breast(s): Yes: WNL Musculoskeletal: Yes: WNL Extremities: Yes: WNL Edema: No Psychiatric: Yes: WNL, Alert, Oriented Labs: CBC, BMP 04/11/20 07:20 04/11/20 07:20 Discharge Summary Problems reviewed: Yes Reason For Visit: PYELONEPHRITIS Current Active Problems Hematuria (Acute) Pyelonephritis (Acute) Procedures: Principal: IV hydration Hospital Course: unremarkable Condition: Good - Instructions Diet, Activity, Other Instructions: Physical activity Resume your normal everyday activity as tolerated no heavy lifting or exercise until seen by your surgeon. You may walk unlimited aelx of and climb stairs. You may resume driving the car when you feel safe and comfortable behind the wheel. No sexual activity as instructed. Wound care If you have a bandage, leave it on, and keep dry for 48-72 hours. After that time discard the outer bandage. If they are tapes on the skin under the out of bandage leave them in place. They will peel off in the next 7 to 10 days. Do Not Peel them off. You may shower the day after surgery. If there are tapes present on the skin, you may shower over them. Diet There are no dietary restrictions. Eat healthy, high-fiber foods. Drink 6 to 8 glasses of liquid each day. This will assist in keeping your bowels are regular. Pain management You may take Tylenol or acetaminophen or Ibuprofen (for example, Motrin, Advil etc.) from my pain prescription medication is ordered should be taken as prescribed for moderate to severe pain. Call MD for any of the following: Severe pain not relieved by medication Fever of 101 or higher Excessive bleeding or drainage on dressing Inability to urinate Referrals: Isabella Saunders MD [Staff Physician] - Disposition: HOME - Home Medications Comprehensive Discharge Medication List: Ambulatory Orders Cephalexin [Keflex] 500 mg PO BID 7 Days #14 capsule 04/01/20 Cefpodoxime Proxetil [Vantin -] 200 mg PO Q12H #20 tablet 04/11/20 Cephalexin Monohydrate [Keflex -] 500 mg PO BID 5 Days #10 capsule 04/11/20
== END 2020-04-11 18:49 | disposition home or self-care (01) ==
LOC: JER 13:12 → JERBED 17:53 → INTOOBSV 17:53 → UNDOADMOB 17:53 → JERBED 21:53 → J8W 21:53 → JERBED 04-11 15:21
PROVIDERS: ADMIT Obstetrics & Gynecology; ATTEND Obstetrics & Gynecology
PROC: 3E03329 Introduction of Other Anti-infective into Peripheral Vein, Percutaneous Approach (ICD-10-PCS; principal; 2020-04-11)
PROC: 3E033GC Introduction of Other Therapeutic Substance into Peripheral Vein, Percutaneous Approach (ICD-10-PCS; 2020-04-11)
DX: O26.892 Other specified pregnancy related conditions, second trimester (principal); Z3A.20 20 weeks gestation of pregnancy; N12 Tubulo-interstitial nephritis, not specified as acute or chronic; N13.30 Unspecified hydronephrosis; D72.829 Elevated white blood cell count, unspecified; R31.9 Hematuria, unspecified
CPT/HCPCS: 36415; 59025; 76775-TC; 76816-TC; 80048; 80053; 81003; 83690; 83735; 85025; 85027; 87086; 87186; 96365; 96375; 99285-25; G0378; U0003

== ENCOUNTER 2020-05-22 06:00 | Inpatient (IN) | payer OTHER ==
--- OUTSIDE RECORDS SUMMARY | 2020-05-22 07:16 | XMS ---
:1980 Author Organization [facility] Support Name Relationship Address Phone UE, UNEMPLOYED Unavailable Unavailable Unavailable UE Unavailable Unavailable Unavailable JARRET HERRERA [address] [place] [address] JARRET HERRERA Unavailable [address] [place] [address] VONNIE STEVENSON Unavailable [address] [place] [address] Re-disclosure Warning The records that you are about to access may contain information from federally- assisted alcohol or drug abuse programs. If such information is present, then the following federally mandated warning applies: This information has been disclosed to you from records protected by federal confidentiality rules (42 CFR part 2). The federal rules prohibit you from making any further disclosure of this information unless further disclosure is expressly permitted by the written consent of the person to whom it pertains or as otherwise permitted by 42 CFR part 2. A general authorization for the release of medical or other information is NOT sufficient for this purpose. The Federal rules restrict any use of the information to criminally investigate or prosecute any alcohol or drug abuse patient.The records that you are about to access may contain highly sensitive health information, the redisclosure of which is protected by Article 27-F of the [facility] Public Health law. If you continue you may haveaccess to information: Regarding HIV / AIDS; Provided by facilities licensed or operated by the [facility] Office of Mental Health; or Provided by the [facility] Office for People With Developmental Disabilities. If such information is present, then the following [facility] mandated warning applies: This information has been disclosed to you from confidential records which are protected by state law. State law prohibits you from making any further disclosure of this information without the specific written consent of the person to whom it pertains, or as otherwise permitted by law. Any unauthorized further disclosure in violation of state law may result in a fine or usp sentence or both. A general authorization for the release of medical or other information is NOT sufficient authorization for further disclosure. Encounters Encounter Providers Location Date Indications Data Source(s ) [place] [facility] [place] Open 04/26/2019 eCW2 ([facility] 12:00:00 AM [facility]) Insurance Providers Payer name Policy type Policy ID Covered Covered constitution party's Policy P joslyn / Coverage constitution party ID relationship to [place] Inf ormation type blackburn ANNABELLE [id number] 200 ESSENTIAL PLAN 3 4 ANNABELLE [id number] 200 HEALTH NON CAP Results ID Date Data Source [id number] 05/17/2020 08:30:00 AM EDT [facility] Name Value Range Interpretation Description Data Sup porting Code Source(s) Document(s ) SARS [facility] coronavirus 2 RNA This lab was ordered by [facility] and reported by [facility]. ID Date Data Source [id number] 04/09/2020 06:40:00 PM EDT [facility] Name Value Range Interpretation Description Data Sup porting Code Source(s) Document(s ) SARS [facility] coronavirus 2 RNA This lab was ordered by [facility] and reported by [facility]. ID Date Data Source [id number] 03/31/2020 04:40:00 AM EDT [facility] Name Value Range Interpretation Description Data Sup porting Code Source(s) Document(s ) SARS [facility] coronavirus 2 RNA This lab was ordered by [facility] and reported by [facility]. Procedure
--- NOTE | 2020-05-22 11:15 | HP ---
History & Physical Update - History History: No Change - Physical Physical: No Change - Assessment Assessment: No Change - Plan Plan: No Change
--- NOTE | 2020-05-22 11:17 | OP ---
Operative Note - Note: Operative Date: 05/22/20 Pre-Operative Diagnosis: R hydronephrosis Operation: cystoscopy and R JJ stent change Findings: encrusted R JJ stent , R hydronephrosis Post-Operative Diagnosis: Other (encrusted JJ stent) Surgeon: Yordan Ware Anesthesiologist/HOBBER: Olga Lidia Li Anesthesia: Spinal, Local Specimens Removed: R JJ stent Estimated Blood Loss (mls): 0 Drains & Tubes with Location: 6 fr 26 cm R JJ stent, 16 fr leger Operative Report Dictated: Yes
[2020-05-22] MEDS ORDERED: PROPOFOL 20 ML ONE (12:40)
[2020-05-22] MEDS ORDERED: MIDAZOLAM HCL 2 MG/2 ML SINGLE DOSE VIAL ONE (12:40)
[2020-05-22] MEDS ORDERED: LIDOCAINE HCL 2% JELLY 10 ML CARTRIDGE ONE (13:09)
[2020-05-22] MEDS ORDERED: ceFAZolin SODIUM 1 GM VIAL IVPB ONE ×2 (13:15→17:43)
[2020-05-22] MEDS ORDERED: LIDOCAINE HCL 2% JELLY 10 ML CARTRIDGE TP ONE (13:31)
[2020-05-22] MEDS ORDERED: IOHEXOL 300 MG/ML INFUS..BTL IJ ONE (13:38)
[2020-05-22] MEDS ORDERED: DEXTROSE 5%-0.45% SALINE 1,000 ML IV SCH (14:15)
--- NOTE | 2020-05-22 14:15 | OP ---
DATE OF OPERATION: 05/22/2020 PREOPERATIVE DIAGNOSIS: Right hydronephrosis. POSTOPERATIVE DIAGNOSES: Right hydronephrosis plus encrusted double-J stent. SPECIMENS: Double-J stent. CULTURES: None. DRAINS: A 6-Cuban 26-cm right double-J stent and a 16-Cuban Winters. ESTIMATED BLOOD LOSS: Negligible. COMPLICATIONS: None. DESCRIPTION OF PROCEDURE: Patient was brought in the operating room, placed on the operating table in the supine position. After administration of spinal anesthesia, intravenous antibiotics were administered; and the patient was placed in the dorsal lithotomy position. The perineum and vagina were prepped and draped in the usual sterile manner. A 22-Cuban cystoscope was inserted into the bladder with the obturator in place. The obturator was removed. Urine was evacuated. The 30-degree telescope was inserted, and cystoscopy was performed. This demonstrated a right double-J stent which was shown to be encrusted. It was grasped, and the encrustation was removed. The stent was then removed and immediately the patient developed right-sided abdominal pain and there appeared to be a stone in the right ureterovesical junction. Patient was told the stent needed to be reinserted which was done. Right ureteral orifice was cannulated with a 0.038 guidewire, advanced to the level of the right renal pelvis. Dual-lumen catheter was inserted. A retrograde pyelogram was done, demonstrated moderate right hydronephrosis. The guidewire was coiled in the renal pelvis and a 6-Cuban 26-cm right double-J stent was inserted over the guidewire under direct visual and minimal fluoroscopic guidance. It was unclear whether the stent was able to get all the way into the renal pelvis. The bladder was left full. Instruments were removed. The 16-Cuban Winters catheter was placed into the bladder, placed on gravity drainage with 10 mL in the balloon. She tolerated the procedure, transferred to the recovery room in stable condition. PLAN: Will obtain a right nephrostomy by Interventional Radiology. Marcia [id number]
--- OUTSIDE RECORDS SUMMARY | 2020-05-22 15:20 | XMS ---
:1980 Author Organization [facility] Support Name Relationship Address Phone UE, UNEMPLOYED Unavailable Unavailable Unavailable UE Unavailable Unavailable Unavailable JARRET HERRERA [address] [place] [address] JARRET HERRERA Unavailable [address] [place] [address] VONNIE STEVENSON Unavailable [address] [place] [address] Re-disclosure Warning The records that you are [...] is protected by Article 27-F of the [facility] Public Health law. If you continue you may haveaccess to information: Regarding HIV / AIDS; Provided by facilities licensed or operated by the [facility] Office of Mental Health; or Provided by the [facility] Office for People With Developmental Disabilities. If such information is present, then the following [facility] mandated warning applies: This information has [...] law may result in a fine or chcf sentence or both. A general authorization for the release of medical or other information is NOT sufficient authorization for further disclosure. Encounters Encounter Providers Location Date Indications Data Source(s ) [place] [facility] [place] Open 04/26/2019 eCW2 ([facility] 12:00:00 AM [facility]) Insurance Providers Payer name Policy type Policy ID Covered Covered alliance party's Policy P joslyn / Coverage alliance party ID relationship to [place] Inf ormation type blackburn ANNABELLE [id number] 200 ESSENTIAL PLAN 3 4 ANNABELLE [id number] 200 HEALTH NON CAP Results ID Date Data Source [id number] 05/17/2020 08:30:00 AM EDT [facility] Name Value Range Interpretation Description Data Sup porting Code Source(s) Document(s ) SARS [facility] coronavirus 2 RNA This lab was ordered by [facility] and reported by [facility]. ID Date Data Source [id number] 04/09/2020 06:40:00 PM EDT [facility] Name Value Range Interpretation Description Data Sup porting Code Source(s) Document(s ) SARS [facility] coronavirus 2 RNA This lab was ordered by [facility] and reported by [facility]. ID Date Data Source [id number] 03/31/2020 04:40:00 AM EDT [facility] Name Value Range Interpretation Description Data Sup porting Code Source(s) Document(s ) SARS [facility] coronavirus 2 RNA This lab was ordered by [facility] and reported by [facility]. Procedure
[2020-05-22] MEDS ORDERED: PROMETHAZINE HCL 25 MG/1 ML VIAL IVPUSH PRN (16:21)
[2020-05-22] MEDS ORDERED: ONDANSETRON 4 MG/2 ML VIAL IVPUSH PRN (16:21)
[2020-05-22] MEDS ORDERED: ceFAZolin SODIUM 1 GM VIAL ONE (17:38)
[2020-05-22] MEDS ORDERED: CEFAZOLIN 1 GM in DEXTROSE 5%-WATER - 50 ML IVPB SCH (18:00)
[2020-05-22 18:52] VITALS: BMI 31.4
[2020-05-22] MEDS: LACTATED RINGERS SOLUTION 1,000 ML IV SCH (19:18)
[2020-05-22] MEDS ORDERED: ACETAMINOPHEN INJECTION 100 ML IVPB ONE (21:09)
[2020-05-22] MEDS: ACETAMINOPHEN 1000 MG/100 ML VIAL (NON FORMULARY) IVPB PRN (21:28)
[2020-05-23] MEDS: CEFAZOLIN 1 GM/D5W 1 GM/50 ML BAG IVPB SCH ×3 (01:51→17:42)
[2020-05-23] MEDS ORDERED: MORPHINE SULFATE 2 MG/ML VIAL ONE (02:12)
[2020-05-23] MEDS ORDERED: morphine SULFATE 4 MG/ML VIAL IVPUSH PRN (02:29)
[2020-05-23] MEDS: ACETAMINOPHEN 1000 MG/100 ML VIAL (NON FORMULARY) IVPB PRN ×3 (05:46→21:56)
[2020-05-23] MEDS ORDERED: MORPHINE SULFATE 2 MG/ML VIAL IVPUSH PRN (08:40)
[2020-05-23 09:00] LABS: HEMATOCRIT 28.9 % (32.4-45.2); HEMOGLOBIN 9.8 GM/dL (10.7-15.3); MCH 32.9 pg (25.7-33.7); MCHC 33.9 g/dl (32.0-36.0); MEAN PLT VOLUME 7.7 fl (7.5-11.1); PLATELET COUNT 191 K/MM3 (134-434); RBC 2.98 M/mm3 (3.60-5.2); RDW 12.9 % (11.6-15.6); WHITE BLOOD COUNT 11.2 K/mm3 (4.0-10.0)
--- NOTE | 2020-05-23 09:06 | PN ---
Progress Note (short form) - Note Progress Note: 39F POD1 s/p emergency stent removal followed by emergency percutaneous nephrostomy under spinal anesthetic. Pt is 26 weeks . Pt's OB and urologist deemed necessity of stent removal yesterday due to pain. Pt had normal FHR monitoring done pre-operatively, and uncomplicated placement of spinal anesthetic. After stent removed, pt experienced increase in pain. Urologist unable to replace stent and brought pt do IR for percutaneous nephrostomy. Pt had repeat normal FHR tracing post op prior to going to IR. Pt now being medicated for pain on OB floor. Will order incentive spirometer at request of OB team to counter effects of splinting secondary to discomfort.
[2020-05-23 09:10] LABS: BLOOD UREA NITROGEN 4.8 mg/dL (7-18); CREATININE 0.6 mg/dL (0.55-1.3); POTASSIUM 3.3 mmol/L (3.5-5.1)
--- NOTE | 2020-05-23 09:41 | PN ---
JEFFREY Lindsey Note Chief Complaint: pt c/o RUQ pain, N History of Present Illness: POD # 1 s/p dfficult R JJ stent removal and reinsertion, s/p R PCN - Objective Vital Signs: Vital Signs Temperature 98.7 F 05/23/20 05:54 Pulse Rate 100 H 05/23/20 05:54 Respiratory Rate 18 05/23/20 05:54 Blood Pressure 113/58 L 05/23/20 05:54 O2 Sat by Pulse Oximetry (%) 99 05/22/20 17:55 Constitutional: Yes: Well Nourished, No Distress Gastrointestinal: Yes: Soft, Tenderness (RUQ) Genitourinary: Yes: Winters Present, Hematuria (minimal) Kidneys: Yes: FLank Pain Right Labs/Additional Data: CBC, BMP 05/23/20 08:02 05/23/20 08:02 Blood Type Blood Type O POSITIVE 05/22/20 20:12 Antibody Screen Negative 05/22/20 20:12 Imaging - Results Other: Image Reviewed (R PCN) Problem List - Problems (1) Hydronephrosis Assessment/Plan: cont R PCN and JJ stent Code(s): N13.30 - UNSPECIFIED HYDRONEPHROSIS (2) Intractable abdominal pain Assessment/Plan: renal u/s today Code(s): R10.9 - UNSPECIFIED ABDOMINAL PAIN (3) Leukocytosis Code(s): D72.829 - ELEVATED WHITE BLOOD CELL COUNT, UNSPECIFIED (4) Assessment/Plan: NST Code(s): Z34.90 - ENCNTR FOR SUPRVSN OF NORMAL , UNSP, UNSP TRIMESTER
[2020-05-23] MEDS: MEPERIDINE HCL 50 MG/ML VIAL IM PRN (12:33)
[2020-05-23] MEDS: LACTATED RINGERS SOLUTION 1,000 ML IV SCH (17:46)
[2020-05-24] MEDS: CEFAZOLIN 1 GM/D5W 1 GM/50 ML BAG IVPB SCH ×3 (01:27→17:41)
[2020-05-24] MEDS: LACTATED RINGERS SOLUTION 1,000 ML IV SCH ×2 (01:28→16:05)
[2020-05-24] MEDS: MEPERIDINE HCL 50 MG/ML VIAL IM PRN ×2 (03:21→10:01)
[2020-05-24 08:06] LABS: RUBELLA ANTIBODY,IGM <20.0 AU/mL (0.0-19.9)
[2020-05-24 08:36] LABS: BASO % 0.2 % (0-2.0); EOS % 1.1 % (0-4.5); HEMATOCRIT 28.3 % (32.4-45.2); HEMOGLOBIN 9.9 GM/dL (10.7-15.3); LYMPH % 9.8 % (8-40); MCH 34.2 pg (25.7-33.7); MEAN CELL VOLUME 97.7 fl (80-96); MEAN PLT VOLUME 7.9 fl (7.5-11.1); MONO % 7.7 % (3.8-10.2); NEUT % 81.2 % (42.8-82.8); PLATELET COUNT 178 K/MM3 (134-434); RDW 13.2 % (11.6-15.6)
[2020-05-24 09:02] LABS: BLOOD UREA NITROGEN 3.7 mg/dL (7-18); CALCIUM 7.7 mg/dL (8.5-10.1)
[2020-05-24 09:04] LABS: CREATININE 0.5 mg/dL (0.55-1.3)
[2020-05-24] MEDS ORDERED: MORPHINE SULFATE 2 MG/ML VIAL IVPUSH PRN (10:38)
[2020-05-24] MEDS ORDERED: MEPERIDINE HCL 50 MG/ML VIAL IM PRN (10:43)
[2020-05-24] MEDS: ACETAMINOPHEN 1000 MG/100 ML VIAL (NON FORMULARY) IVPB PRN (16:04)
[2020-05-24] MEDS: POTASSIUM CHLORIDE TABS 20 MEQ TABLET.ER (FP) PO SCH (21:06)
--- NOTE | 2020-05-25 00:30 | CON.OBG ---
Consult Consult Specialty:: obgyn Referred by:: dimitri Reason for Consultation:: Pt with rightsided pain - History of Present Illness Chief Complaint: kidney stones. 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) ...LMP: 11/20/19 - Past Surgical History Past Surgical History: Yes: None, Stent - Alcohol/Substance Use Hx Alcohol Use: No History of Substance Use: reports: None - Smoking History Smoking history: Never smoked Have you smoked in the past 12 months: No - Social History Usual Living Arrangement: With Spouse ADL: Independent History of Recent Travel: No Home Medications - Allergies Allergies/Adverse Reactions: Allergies Allergy/AdvReac Type Severity Reaction Status Date / Time No Known Allergies Allergy Verified 05/22/20 19:31 - Home Medications Home Medications: Ambulatory Orders Iron,Carb/Vit C/Vit B12/Folic [Iron 100 Plus Tablet] 1 each PO BID 05/21/20 Multivitamin 1 each PO DAILY 05/21/20 Cefpodoxime Proxetil [Vantin -] 200 mg PO Q12H #14 tablet 05/22/20 Family Medical History Family Hx Cancer: Sister (and cousin with ovarian cancer) Family Hx Diabetes: Mother Physical Exam-COAL LOADER Vital Signs: Vital Signs Temperature 98.2 F 05/24/20 21:04 Pulse Rate 90 05/24/20 21:04 Respiratory Rate 20 05/24/20 21:04 Blood Pressure 100/58 L 05/24/20 21:04 O2 Sat by Pulse Oximetry (%) 97 05/23/20 09:42 Labs: CBC, BMP 05/24/20 07:48 05/24/20 07:48 Problem List - Problems (1) Intractable abdominal pain Problems reviewed: Yes Code(s): R10.9 - UNSPECIFIED ABDOMINAL PAIN (2) Problems reviewed: Yes Code(s): Z34.90 - ENCNTR FOR SUPRVSN OF NORMAL , UNSP, UNSP TRIMESTER Assessment/Plan iup at weeks kidney stones abdominal pain hypokalemia plan kdur leger maintain IVF
[2020-05-25] MEDS: CEFAZOLIN 1 GM/D5W 1 GM/50 ML BAG IVPB SCH ×3 (01:58→18:30)
[2020-05-25] MEDS: ACETAMINOPHEN 1000 MG/100 ML VIAL (NON FORMULARY) IVPB PRN (01:58)
[2020-05-25 08:40] LABS: BLOOD UREA NITROGEN 4.4 mg/dL (7-18); CALCIUM 7.5 mg/dL (8.5-10.1); CREATININE 0.5 mg/dL (0.55-1.3); POTASSIUM 3.3 mmol/L (3.5-5.1)
[2020-05-25] MEDS: LACTATED RINGERS SOLUTION 1,000 ML IV SCH (09:05)
[2020-05-25] MEDS: POTASSIUM CHLORIDE TABS 20 MEQ TABLET.ER (FP) PO SCH (09:19)
--- NOTE | 2020-05-25 11:37 | PN ---
JEFFREY Lindsey Note Chief Complaint: pt w/o c/o, feels better History of Present Illness: 39 f s/p R JJ stent change and R PCN - Objective Vital Signs: Vital Signs Temperature 97.8 F 05/25/20 06:36 Pulse Rate 94 H 05/25/20 06:36 Respiratory Rate 20 05/25/20 06:36 Blood Pressure 95/52 L 05/25/20 06:36 O2 Sat by Pulse Oximetry (%) 98 05/25/20 09:00 Constitutional: Yes: Well Nourished, No Distress, Calm Gastrointestinal: Yes: WNL, Normal Bowel Sounds, Soft Genitourinary: No: CVA Tenderness - Left, CVA Tenderness - Right, Leger Present, Hematuria Labs/Additional Data: CBC, BMP 05/24/20 07:48 05/25/20 07:31 Blood Type Blood Type O POSITIVE 05/22/20 20:12 Antibody Screen Negative 05/22/20 20:12 Imaging - Results Ultrasound: Image Reviewed Problem List - Problems (1) Hydronephrosis Assessment/Plan: discont leger, R nephrostogram 05/25 Code(s): N13.30 - UNSPECIFIED HYDRONEPHROSIS (2) Intractable abdominal pain Code(s): R10.9 - UNSPECIFIED ABDOMINAL PAIN (3) Code(s): Z34.90 - ENCNTR FOR SUPRVSN OF NORMAL , UNSP, UNSP TRIMESTER
[2020-05-25] MEDS ORDERED: ACETAMINOPHEN 500 MG TABLET (FP) PO PRN (17:45)
--- NOTE | 2020-05-25 18:38 | PN ---
Ante-Partal Exam - Subjective Subjective: Pt with rightside pain improved pt wants tp know if she needs leger the entire Vital Signs: Vital Signs Temperature 97.8 F 05/25/20 06:36 Pulse Rate 94 H 05/25/20 06:36 Respiratory Rate 20 05/25/20 06:36 Blood Pressure 95/52 L 05/25/20 06:36 O2 Sat by Pulse Oximetry (%) 98 05/25/20 09:00 Bleeding: No Headache: No Visual changes: No Right upper quadrant pain: No - Contractions Contractions: No - Exam during Labor Category: I Monitor Decelerations: None Amniotic Membrane Status: Intact - Intrapartum Hemorrhage Risk Risk Score: 0 Risk Level: Low Risk - Assessment/Plan Assessment/Plan: IUP at 26 week
[2020-05-25] MEDS ORDERED: ZOLPIDEM TARTRATE 5 MG TABLET PO PRN (23:44)
[2020-05-26] MEDS: LACTATED RINGERS SOLUTION 1,000 ML IV SCH ×2 (00:15→17:05)
[2020-05-26] MEDS: CEFAZOLIN 1 GM/D5W 1 GM/50 ML BAG IVPB SCH ×3 (01:53→17:05)
[2020-05-26] MEDS: POTASSIUM CHLORIDE TABS 20 MEQ TABLET.ER (FP) PO SCH (09:11)
--- NOTE | 2020-05-26 16:23 | PATH ---
Surgical Pathology Report Patient Name: JOSIAH GAMEZ Med. Rec. #: [id number] /Age/Gender: 1980 (Age: 39) / F Account: [id number] Location: [facility] OBS/SALES AGENT FOOD VENDING SERVICE Taken: 05/22/2020 Received: 05/23/2020 Reported: 05/26/2020 Physicians: Yordan Ware M.D. Specimen(s) Received OLD RIGHT URETERAL STENT Clinical History Hydronephrosis Final Diagnosis OLD URETERAL STENT, RIGHT, REMOVAL: URETERAL STENT. MACROSCOPIC DIAGNOSIS. Electronically Signed Aure Villanueva M.D. Gross Description Received fresh labeled "old right ureteral stent," is a 37 cm in length yellow-green, coiled portion of tubing with attached calcified material, consistent with a ureteral stent. No soft tissue is present. No sections are submitted, gross only. DL/05/23/2020 saudi/05/23/2020
[2020-05-27] MEDS: CEFAZOLIN 1 GM/D5W 1 GM/50 ML BAG IVPB SCH (02:04)
--- NOTE | 2020-05-27 08:35 | PN ---
JEFFREY Lindsey Note Chief Complaint: pt w/o c/o, tolerated R PCN clamping overnight History of Present Illness: s/p R JJ stent change and R PCN - Objective Vital Signs: Vital Signs Temperature 98.1 F 05/27/20 06:00 Pulse Rate 82 05/27/20 06:00 Respiratory Rate 18 05/27/20 06:00 Blood Pressure 103/70 05/27/20 06:00 O2 Sat by Pulse Oximetry (%) 98 05/27/20 06:00 Constitutional: Yes: Well Nourished, No Distress, Calm Gastrointestinal: Yes: WNL, Normal Bowel Sounds, Soft Genitourinary: Yes: WNL. No: Bladder Distention, CVA Tenderness - Left, CVA Tenderness - Right, Winters Present, Hematuria Labs/Additional Data: CBC, BMP 05/24/20 07:48 05/25/20 07:31 Blood Type Blood Type O POSITIVE 05/22/20 20:12 Antibody Screen Negative 05/22/20 20:12 Imaging - Results Other: Image Reviewed Problem List - Problems (1) Hydronephrosis Assessment/Plan: for R nephrostomy removal in IR today. OK for disch today after neph removed.. f/u in my office 05/29 for cysto and R JJ stent removal Code(s): N13.30 - UNSPECIFIED HYDRONEPHROSIS (2) Code(s): Z34.90 - ENCNTR FOR SUPRVSN OF NORMAL , UNSP, UNSP TRIMESTER
[2020-05-27] MEDS: POTASSIUM CHLORIDE TABS 20 MEQ TABLET.ER (FP) PO SCH (10:07)
[2020-05-27 11:27] VITALS: PULSE 68; TEMP 98
[2020-05-27 16:33] VITALS: BP 110/68
== END 2020-05-27 17:18 | disposition home or self-care (01) | DRG 951 ==
LOC: JASU-SURG 06:00 → J2C 14:01 → JLDR 18:24 → J3W 20:40
PROVIDERS: ADMIT Urology; ATTEND Urology
PROC: 0T9330Z Drainage of Right Kidney Pelvis with Drainage Device, Percutaneous Approach (ICD-10-PCS; 2020-05-22)
PROC: 0T768DZ Dilation of Right Ureter with Intraluminal Device, Via Natural or Artificial Opening Endoscopic (ICD-10-PCS; principal; 2020-05-22 13:00)
PROC: 0TP98DZ Removal of Intraluminal Device from Ureter, Via Natural or Artificial Opening Endoscopic (ICD-10-PCS; 2020-05-22 13:00)
PROC: 0TP5X0Z Removal of Drainage Device from Kidney, External Approach (ICD-10-PCS; 2020-05-27)
DX: O23.02 Infections of kidney in pregnancy, second trimester (principal); T83.89XA Other specified complication of genitourinary prosthetic devices, implants and grafts, initial encounter; N13.2 Hydronephrosis with renal and ureteral calculous obstruction; Z3A.26 26 weeks gestation of pregnancy; E87.6 Hypokalemia; Y83.9 Surgical procedure, unspecified as the cause of abnormal reaction of the patient, or of later complication, without mention of misadventure at the time of the procedure
CPT/HCPCS: 36415; 50389; 50431; 50432; 74425-TC-FY; 76000-TC-FY; 76775-TC; 76815; 80048; 85025; 85027; 85730; 86762; 86850; 86900; 86901; 87070; 87075; 87186; 87205; 87340; 88300-TC; 94010; 94760; J0131; J2175

== ENCOUNTER 2020-07-03 10:00 | Observation (INO) | payer OTHER ==
[2020-07-03 11:46] VITALS: BMI 34.2
[2020-07-03] MEDS ORDERED: CITRIC ACID/SODIUM CITRATE 30 ML UNIT-DOSE CUP PO ONE (11:46)
[2020-07-03 11:48] LABS: BASO % 0.3 % (0-2.0); EOS % 0.2 % (0-4.5); HEMATOCRIT 33.4 % (32.4-45.2); HEMOGLOBIN 11.3 GM/dL (10.7-15.3); LYMPH % 14.5 % (8-40); MCH 32.9 pg (25.7-33.7); MCHC 33.9 g/dl (32.0-36.0); MEAN PLT VOLUME 7.7 fl (7.5-11.1); MONO % 8.4 % (3.8-10.2); NEUT % 76.6 % (42.8-82.8); PLATELET COUNT 157 K/MM3 (134-434); RBC 3.44 M/mm3 (3.60-5.2); RDW 13.1 % (11.6-15.6); WHITE BLOOD COUNT 6.3 K/mm3 (4.0-10.0)
[2020-07-03] MEDS ORDERED: ceFAZolin 2 GRAM PREMIX BAG IVPB ONE (11:50)
[2020-07-03 11:55] LABS: INR 0.98 (0.83-1.09); PROTHROMBIN TIME (PATIENT) 12.1 SEC (9.7-13.0)
[2020-07-03 11:58] LABS: ACTIVATED PTT 27.4 SECONDS (25.2-36.5)
[2020-07-03] MEDS ORDERED: ELECTROLYTE-148 SOLN 1,000 ML IV SCH (12:00)
[2020-07-03] MEDS ORDERED: CEFAZOLIN 2 GM/D5W 2 GM/50 ML ML IVPB ONE (12:07)
[2020-07-03 12:19] LABS: BLOOD UREA NITROGEN 3.5 mg/dL (7-18); CALCIUM 7.5 mg/dL (8.5-10.1)
[2020-07-03 12:23] LABS: CREATININE 0.7 mg/dL (0.55-1.3)
[2020-07-03] MEDS ORDERED: BUTORPHANOL TARTRATE 2 MG/ML VIAL IVPUSH PRN (13:07)
[2020-07-03] MEDS ORDERED: PROMETHAZINE HCL 25 MG/1 ML VIAL IVPUSH ONE (13:07)
[2020-07-03] MEDS ORDERED: POTASSIUM CHLORIDE TABS 20 MEQ TABLET.ER (FP) PO ONE (13:30)
[2020-07-03 14:52] LABS: EPI CELLS >36 /uL (0-25.1); HYALINE CASTS 0 /uL (0-3.1); URINE APPEARANCE CLEAR; URINE BACTERIA 628 /uL (0-1359); URINE BILIRUBIN NEGATIVE (NEGATIVE); URINE COLOR YELLOW; URINE GLUCOSE (UA) NEGATIVE (NEGATIVE); URINE KETONE 1+ (NEGATIVE); URINE LEUK ESTERASE 2+ (NEGATIVE); URINE NITRITE NEGATIVE (NEGATIVE); URINE PROTEIN NEGATIVE (NEGATIVE); URINE RBC 10 /uL (0-23.9); URINE UROBILINOGEN 0.2 mg/dL (0.2-1.0); URINE WBC 39 /uL (0-25.8)
[2020-07-03 15:21] LABS: HIV INTERPRETATION NEGATIVE (NEGATIVE)
[2020-07-03 15:38] VITALS: BP 126/66; PULSE 92; TEMP 98.8
[2020-07-03] MEDS ORDERED: CEFAZOLIN 1 GM in DEXTROSE 5%-WATER - 50 ML IVPB SCH (18:00)
[2020-07-04] MEDS ORDERED: POTASSIUM CHLORIDE TABS 20 MEQ TABLET.ER (FP) PO SCH (10:00)
== END 2020-07-03 15:45 | disposition home or self-care (01) ==
LOC: JDEL 10:00 → JLDR 10:55 → UNDOADMIN 10:55 → JLDR 15:15
PROVIDERS: ADMIT Obstetrics & Gynecology; ATTEND Obstetrics & Gynecology
PROC: 3E03329 Introduction of Other Anti-infective into Peripheral Vein, Percutaneous Approach (ICD-10-PCS; principal; 2020-07-03)
PROC: 3E033GC Introduction of Other Therapeutic Substance into Peripheral Vein, Percutaneous Approach (ICD-10-PCS; 2020-07-03)
DX: Z34.83 Encounter for supervision of other normal pregnancy, third trimester (principal); Z3A.33 33 weeks gestation of pregnancy; N12 Tubulo-interstitial nephritis, not specified as acute or chronic; E66.9 Obesity, unspecified; R10.31 Right lower quadrant pain; N39.0 Urinary tract infection, site not specified; U07.1 COVID-19; Z87.891 Personal history of nicotine dependence; N20.1 Calculus of ureter
CPT/HCPCS: 36415; 80048; 81003; 85025; 85610; 85730; 86780; 86850; 86900; 86901; 87086; 87389; C9803; G0378; U0003

== ENCOUNTER 2020-08-19 07:15 | Inpatient (IN) | payer OTHER ==
[2020-08-19] MEDS ORDERED: DINOPROSTONE 10 MG VAGINAL SUPPOSITORY VG ONE (08:30)
[2020-08-19 08:50] VITALS: BMI 31.4
[2020-08-19] MEDS ORDERED: BUTORPHANOL TARTRATE 1 MG/ML VIAL IVPB PRN (09:09)
[2020-08-19] MEDS ORDERED: PROMETHAZINE HCL 25 MG/1 ML VIAL IVPB ONE (09:09)
[2020-08-19] MEDS ORDERED: ELECTROLYTE-148 SOLN 1,000 ML IV SCH (09:15)
[2020-08-19 09:18] LABS: BASO % 0.5 % (0-2.0); EOS % 1.2 % (0-4.5); HEMATOCRIT 33.9 % (32.4-45.2); HEMOGLOBIN 11.5 GM/dL (10.7-15.3); LYMPH % 16.4 % (8-40); MCH 32.1 pg (25.7-33.7); MCHC 33.9 g/dl (32.0-36.0); MEAN CELL VOLUME 94.7 fl (80-96); MEAN PLT VOLUME 8.7 fl (7.5-11.1); NEUT % 72.9 % (42.8-82.8); PLATELET COUNT 246 K/MM3 (134-434); RBC 3.58 M/mm3 (3.60-5.2); RDW 13.2 % (11.6-15.6)
[2020-08-19 09:24] LABS: PROTHROMBIN TIME (PATIENT) 12.1 SEC (9.7-13.0)
[2020-08-19 09:27] LABS: ACTIVATED PTT 23.7 SECONDS (25.2-36.5)
[2020-08-19 09:29] LABS: POTASSIUM 3.9 mmol/L (3.5-5.1)
[2020-08-19 09:30] LABS: CALCIUM 8.4 mg/dL (8.5-10.1)
[2020-08-19 09:31] LABS: BLOOD UREA NITROGEN 8.2 mg/dL (7-18)
[2020-08-19 09:34] LABS: CREATININE 0.7 mg/dL (0.55-1.3)
[2020-08-19 10:26] LABS: HIV INTERPRETATION NEGATIVE (NEGATIVE)
[2020-08-19 11:00] LABS: SYPHILIS W/ RPR CONF NON-REACTIVE (NONREACTIVE)
[2020-08-19] MEDS ORDERED: FENTANYL/BUPIVACAINE/NS/PF - PCEA - 50 ML DISP.SYRIN EP ONE ×2 (16:25→21:06)
[2020-08-19] MEDS ORDERED: NALOXONE HCL 0.4 MG/ML VIAL IVPUSH PRN (16:39)
[2020-08-19] MEDS ORDERED: FENTANYL/BUPIVACAINE/NS/PF - PCEA - 50 ML DISP.SYRIN EP SCH (16:45)
[2020-08-19] MEDS ORDERED: PCA PUMP NR ONE (21:06)
[2020-08-20] MEDS ORDERED: FENTANYL/BUPIVACAINE/NS/PF - PCEA - 50 ML DISP.SYRIN EP ONE ×2 (01:40→05:46)
[2020-08-20] MEDS ORDERED: OXYTOCIN 30 UNITS in 0.9% NS 30 UNIT/500 ML INFUS.BAG IVPB SCH (05:00)
[2020-08-20] MEDS ORDERED: OXYTOCIN 30 UNITS in 0.9% NS 30 UNIT/500 ML INFUS.BAG IVPB ONE (05:56)
[2020-08-20] MEDS ORDERED: METHYLERGONOVINE MALEATE 0.2 MG/1 ML AMP IM PRN (06:41)
[2020-08-20] MEDS ORDERED: BENZOCAINE 28 GM HEMORRHOIDAL OINTMENT RC PRN (06:41)
[2020-08-20] MEDS ORDERED: BENZOCAINE 20% 57 GM BOTTLE TP PRN (06:41)
[2020-08-20] MEDS ORDERED: WITCH HAZEL 50% (TUCKS) 40 PAD/JAR PAD TP PRN (06:41)
[2020-08-20] MEDS ORDERED: BISACODYL 10 MG SUPP.RECT PR PRN (06:41)
[2020-08-20] MEDS ORDERED: OXYTOCIN 20 UNITS in 0.9% NS 20 UNIT/1,000 ML INFUS.BAG IV SCH (06:45)
[2020-08-20] MEDS ORDERED: LIDOCAINE HCL 1% PRESERVATIVE FREE - 30ML VIAL ONE (07:24)
[2020-08-20] MEDS ORDERED: OXYTOCIN 20 UNITS in 0.9% NS 20 UNIT/1,000 ML INFUS.BAG IV ONE (07:24)
[2020-08-20 10:53] LABS: CORD BASE EXCESS -4.6 mmol/L (0-2); CORD HCO3 20.5 mmHg (20-29); CORD PCO2 38.7 mmHg (30-78); CORD pH 7.342 (7.14-7.44)
[2020-08-20 10:58] LABS: CORD BASE EXCESS -4.8 mmol/L (0-2); CORD HCO3 21.1 mmHg (20-29); CORD PCO2 41.8 mmHg (30-78); CORD pH 7.32 (7.14-7.44)
[2020-08-20] MEDS: ACETAMINOPHEN 325 MG TABLET (FP) PO PRN (16:54)
[2020-08-20] MEDS: IBUPROFEN 600 MG TABLET (FP) PO PRN (16:54)
[2020-08-21] MEDS: ACETAMINOPHEN 325 MG TABLET (FP) PO PRN ×3 (01:26→10:59)
[2020-08-21] MEDS: IBUPROFEN 600 MG TABLET (FP) PO PRN ×3 (01:27→11:00)
[2020-08-21 09:39] LABS: BASO % 0.2 % (0-2.0); HEMATOCRIT 31.1 % (32.4-45.2); HEMOGLOBIN 10.5 GM/dL (10.7-15.3); LYMPH % 14.6 % (8-40); MCHC 33.6 g/dl (32.0-36.0); MEAN CELL VOLUME 95.2 fl (80-96); MEAN PLT VOLUME 8.5 fl (7.5-11.1); MONO % 5.1 % (3.8-10.2); NEUT % 79.1 % (42.8-82.8); PLATELET COUNT 264 K/MM3 (134-434); RBC 3.27 M/mm3 (3.60-5.2); RDW 13.4 % (11.6-15.6); WHITE BLOOD COUNT 13.4 K/mm3 (4.0-10.0)
[2020-08-21] MEDS ORDERED: DIPHTH,PERTUSS(ACELL),TET 0.5 ML DISP.SYRIN IM ONE (10:00)
[2020-08-21] MEDS ORDERED: FLU VACCINE (FLULAVAL) PF 60 MCG/0.5 ML SYRINGE 2020-2021 IM ONE (10:00)
[2020-08-21 17:11] VITALS: BP 106/81; PULSE 87; TEMP 98.1
== END 2020-08-21 15:30 | disposition home or self-care (01) | DRG 560 ==
LOC: JLDR 07:15 → J3W 08-20 11:44
PROVIDERS: ADMIT Obstetrics & Gynecology; ATTEND Obstetrics & Gynecology
PROC: 3E0P7VZ Introduction of Hormone into Female Reproductive, Via Natural or Artificial Opening (ICD-10-PCS; principal; 2020-08-19)
PROC: 0W8NXZZ Division of Female Perineum, External Approach (ICD-10-PCS; 2020-08-20)
PROC: 10E0XZZ Delivery of Products of Conception, External Approach (ICD-10-PCS; 2020-08-20)
DX: O70.0 First degree perineal laceration during delivery (principal); Z86.19 Personal history of other infectious and parasitic diseases; Z96.0 Presence of urogenital implants; Z87.440 Personal history of urinary (tract) infections; Z87.442 Personal history of urinary calculi; Z3A.39 39 weeks gestation of pregnancy; Z37.0 Single live birth
CPT/HCPCS: 36415; 36600; 59409; 80048; 82803; 85025; 85610; 85730; 86780; 86850; 86900; 86901; 87389; 90715; C9803; G0008; Q2036; U0003

== ENCOUNTER 2021-03-23 01:30 | Inpatient (IN) | payer OTHER ==
[2021-03-23] MEDS ORDERED: ACETAMINOPHEN 1000 MG/100 ML VIAL (NON FORMULARY) IVPB ONE ×2 (02:43→14:09)
[2021-03-23] MEDS ORDERED: SODIUM CHLORIDE 0.9% 500 ML INFUS.BAG IV ONE (02:43)
[2021-03-23] MEDS ORDERED: ONDANSETRON 4 MG/2 ML VIAL IVPUSH ONE (02:44)
[2021-03-23] MEDS ORDERED: KETOROLAC TROMETHAMINE 30 MG/1 ML VIAL IVPUSH ONE (02:47)
[2021-03-23] MEDS ORDERED: morphine CARPU-JECT 2 MG/1 ML DISP.SYRIN IVPUSH ONE ×2 (02:48→08:11)
[2021-03-23] MEDS ORDERED: ACETAMINOPHEN INJECTION 100 ML IVPB ONE (02:51)
[2021-03-23] MEDS ORDERED: ONDANSETRON 4 MG/2 ML VIAL ONE (02:51)
[2021-03-23 03:05] LABS: BASO % 0.3 % (0-2.0); EOS % 0.4 % (0-4.5); HEMATOCRIT 35.7 % (32.4-45.2); HEMOGLOBIN 12.5 GM/dL (10.7-15.3); LYMPH % 10.8 % (8-40); MCH 32.1 pg (25.7-33.7); MCHC 34.9 g/dl (32.0-36.0); MEAN CELL VOLUME 91.9 fl (80-96); MEAN PLT VOLUME 7.8 fl (7.5-11.1); MONO % 5.4 % (3.8-10.2); NEUT % 83.1 % (42.8-82.8); PLATELET COUNT 260 10^3/uL (134-434); RBC 3.89 M/mm3 (3.60-5.2); RDW 13.5 % (11.6-15.6); WHITE BLOOD COUNT 12.9 K/mm3 (4.0-10.0)
[2021-03-23 03:32] LABS: ALBUMIN 3.5 g/dl (3.4-5.0); CALCIUM 8.9 mg/dL (8.5-10.1)
[2021-03-23 03:33] LABS: BLOOD UREA NITROGEN 12.2 mg/dL (7-18)
[2021-03-23 03:37] LABS: CREATININE 1.1 mg/dL (0.55-1.3)
[2021-03-23 03:38] LABS: BILIRUBIN,TOTAL 0.5 mg/dL (0.2-1); TOT PROT 7.1 g/dl (6.4-8.2)
[2021-03-23] MEDS ORDERED: MORPHINE SULFATE 2 MG/ML VIAL ONE ×2 (03:45→11:12)
[2021-03-23 05:46] LABS: EPI CELLS >36 /uL (0-25.1); HYALINE CASTS 1 /uL (0-3.1); PH,URINE 6.5 (5.0-8.0); URINE APPEARANCE CLEAR; URINE BACTERIA 629 /uL (0-1359); URINE BILIRUBIN NEGATIVE (NEGATIVE); URINE COLOR YELLOW; URINE GLUCOSE (UA) NEGATIVE (NEGATIVE); URINE KETONE TRACE (NEGATIVE); URINE LEUK ESTERASE NEGATIVE (NEGATIVE); URINE NITRITE NEGATIVE (NEGATIVE); URINE PROTEIN NEGATIVE (NEGATIVE); URINE RBC 45 /uL (0-23.9); URINE UROBILINOGEN 0.2 mg/dL (0.2-1.0)
[2021-03-23] MEDS ORDERED: CEFTRIAXONE 1 GM in DEXTROSE 5%-WATER - 50 ML IVPB ONE (06:31)
[2021-03-23] MEDS ORDERED: CEFTRIAXONE 1 GM/50 ML BAG ONE (06:41)
[2021-03-23] MEDS ORDERED: morphine SULFATE 4 MG/ML VIAL ONE (08:13)
[2021-03-23] MEDS ORDERED: SODIUM CHLORIDE 1,000 ML IV SCH (09:00)
[2021-03-23] MEDS ORDERED: PRENATAL VITAMINS W/ FOLIC ACID TABLET (FP) PO SCH (10:00)
[2021-03-23] MEDS: MORPHINE SULFATE 2 MG/ML VIAL IVPUSH PRN ×2 (11:16→18:21)
[2021-03-23 13:56] LABS: INR 1.03 (0.83-1.09); PROTHROMBIN TIME (PATIENT) 12.6 SEC (9.7-13.0)
[2021-03-23 13:59] LABS: ACTIVATED PTT 26.8 SECONDS (25.2-36.5)
[2021-03-23] MEDS ORDERED: PROPOFOL 20 ML ONE (20:53)
[2021-03-23] MEDS ORDERED: LACTATED RINGERS SOLUTION 1,000 ML IV SCH (21:45)
[2021-03-23] MEDS ORDERED: ONDANSETRON 4 MG/2 ML VIAL IVPUSH PRN (21:45)
[2021-03-23] MEDS: SODIUM CHLORIDE 1,000 ML IV SCH (22:45)
[2021-03-24] MEDS: MORPHINE SULFATE 2 MG/ML VIAL IVPUSH PRN ×2 (03:16→10:48)
[2021-03-24] MEDS ORDERED: ACETAMINOPHEN 1000 MG/100 ML VIAL (NON FORMULARY) IVPB ONE ×2 (05:58→13:31)
[2021-03-24 09:23] LABS: BASO % 0.4 % (0-2.0); EOS % 0.2 % (0-4.5); HEMATOCRIT 31.5 % (32.4-45.2); HEMOGLOBIN 10.9 GM/dL (10.7-15.3); LYMPH % 11.5 % (8-40); MCH 32.6 pg (25.7-33.7); MCHC 34.6 g/dl (32.0-36.0); MEAN CELL VOLUME 94.3 fl (80-96); MEAN PLT VOLUME 7.9 fl (7.5-11.1); MONO % 7.5 % (3.8-10.2); NEUT % 80.4 % (42.8-82.8); PLATELET COUNT 219 10^3/uL (134-434); RBC 3.34 M/mm3 (3.60-5.2); RDW 13.6 % (11.6-15.6); WHITE BLOOD COUNT 9.9 K/mm3 (4.0-10.0)
[2021-03-24 09:53] LABS: ALBUMIN 2.8 g/dl (3.4-5.0); CALCIUM 8.1 mg/dL (8.5-10.1); MAGNESIUM 1.9 mg/dL (1.8-2.4)
[2021-03-24 09:57] LABS: BILIRUBIN,TOTAL 0.8 mg/dL (0.2-1); CREATININE 1.3 mg/dL (0.55-1.3); PHOSPHOROUS 3.4 mg/dL (2.5-4.9)
[2021-03-24] MEDS ORDERED: CEFTRIAXONE 1 GM in DEXTROSE 5%-WATER - 50 ML IVPB SCH (10:00)
[2021-03-24] MEDS ORDERED: cefTRIAXone SODIUM 1 GM VIAL ONE (10:29)
[2021-03-24] MEDS ORDERED: DEXTROSE 5%-WATER - 50 ML IVPB ONE (10:29)
[2021-03-24] MEDS: PRENATAL VITAMINS W/ FOLIC ACID TABLET (FP) PO SCH (10:41)
[2021-03-24] MEDS: SODIUM CHLORIDE 1,000 ML IV SCH (10:41)
[2021-03-24] MEDS: CEFTRIAXONE 1 GM in DEXTROSE 5%-WATER - 50 ML IVPB SCH (10:41)
[2021-03-24] MEDS ORDERED: ONDANSETRON 4 MG/2 ML VIAL IVPUSH ONE (13:15)
[2021-03-24] MEDS ORDERED: SODIUM CHLORIDE 500 ML IV ONE (16:30)
[2021-03-25] MEDS: SODIUM CHLORIDE 1,000 ML IV SCH (03:52)
[2021-03-25 05:21] VITALS: TEMP 98.5
[2021-03-25 09:30] LABS: BASO % 0.4 % (0-2.0); EOS % 1.6 % (0-4.5); HEMATOCRIT 31.3 % (32.4-45.2); HEMOGLOBIN 10.9 GM/dL (10.7-15.3); LYMPH % 20.8 % (8-40); MCH 32.6 pg (25.7-33.7); MCHC 34.8 g/dl (32.0-36.0); MEAN CELL VOLUME 93.6 fl (80-96); MEAN PLT VOLUME 8.1 fl (7.5-11.1); MONO % 8.7 % (3.8-10.2); NEUT % 68.5 % (42.8-82.8); PLATELET COUNT 231 10^3/uL (134-434); RBC 3.34 M/mm3 (3.60-5.2); RDW 13.7 % (11.6-15.6); WHITE BLOOD COUNT 8.4 K/mm3 (4.0-10.0)
[2021-03-25 09:50] LABS: BLOOD UREA NITROGEN 8.5 mg/dL (7-18)
[2021-03-25 09:52] LABS: CALCIUM 7.9 mg/dL (8.5-10.1)
[2021-03-25 09:54] LABS: CREATININE 0.8 mg/dL (0.55-1.3)
[2021-03-25] MEDS ORDERED: cefTRIAXone SODIUM 1 GM VIAL ONE (11:36)
[2021-03-25] MEDS ORDERED: DEXTROSE 5%-WATER - 50 ML IVPB ONE (11:36)
[2021-03-25] MEDS: CEFTRIAXONE 1 GM in DEXTROSE 5%-WATER - 50 ML IVPB SCH (11:41)
[2021-03-25] MEDS: PRENATAL VITAMINS W/ FOLIC ACID TABLET (FP) PO SCH (11:41)
[2021-03-25] MEDS ORDERED: POTASSIUM CHLORIDE ORAL LIQUID 20 MEQ/15 ML PO SCH (11:45)
[2021-03-25] MEDS ORDERED: SODIUM CHLORIDE 250 ML IV STA (12:38)
[2021-03-25 12:49] VITALS: BP 112/71; PULSE 79
== END 2021-03-25 19:00 | disposition home or self-care (01) | DRG 566 ==
LOC: JER 01:30 → JERBED 04:51 → J5S 12:54
PROVIDERS: ADMIT Internal Medicine; ATTEND Internal Medicine
PROC: 0T768DZ Dilation of Right Ureter with Intraluminal Device, Via Natural or Artificial Opening Endoscopic (ICD-10-PCS; principal; 2021-03-23 19:30)
PROC: BT1DZZZ Fluoroscopy of Right Kidney, Ureter and Bladder (ICD-10-PCS; 2021-03-23 19:30)
PROC: 0T903ZX Drainage of Right Kidney, Percutaneous Approach, Diagnostic (ICD-10-PCS; 2021-03-24)
DX: O23.02 Infections of kidney in pregnancy, second trimester (principal); N13.6 Pyonephrosis; Z3A.14 14 weeks gestation of pregnancy
CPT/HCPCS: 36415; 50432; 76775-TC; 80048; 80053; 81003; 83735; 84100; 85025; 85610; 85730; 86850; 86900; 86901; 87040; 87070; 87075; 87086; 87102; 87116; 87205; 87206; 87210; 94760; 99285-25; A4358; C1729; C1769; C9803; J0131; U0003; U0005

== ENCOUNTER 2021-05-03 18:37 | Inpatient (IN) | payer OTHER ==
[2021-05-03] MEDS ORDERED: ACETAMINOPHEN 1000 MG/100 ML VIAL (NON FORMULARY) IVPB ONE (19:35)
[2021-05-03] MEDS ORDERED: SODIUM CHLORIDE 0.9% 500 ML INFUS.BAG IV ONE (19:35)
[2021-05-03] MEDS ORDERED: ONDANSETRON 4 MG/2 ML VIAL IVPUSH ONE (19:35)
[2021-05-03] MEDS ORDERED: morphine CARPU-JECT 2 MG/1 ML DISP.SYRIN IVPUSH ONE (19:43)
[2021-05-03] MEDS ORDERED: ACETAMINOPHEN INJECTION 100 ML IVPB ONE (19:59)
[2021-05-03] MEDS ORDERED: ONDANSETRON 4 MG/2 ML VIAL ONE (19:59)
[2021-05-03] MEDS ORDERED: MORPHINE SULFATE 2 MG/ML VIAL ONE (19:59)
[2021-05-03 20:13] LABS: HEMATOCRIT 35.1 % (32.4-45.2); HEMOGLOBIN 12.2 GM/dL (10.7-15.3); MCH 32.5 pg (25.7-33.7); MCHC 34.7 g/dl (32.0-36.0); MEAN CELL VOLUME 93.7 fl (80-96); MEAN PLT VOLUME 7.9 fl (7.5-11.1); PLATELET COUNT 221 10^3/uL (134-434); RBC 3.74 M/mm3 (3.60-5.2); RDW 13.6 % (11.6-15.6); WHITE BLOOD COUNT 15.3 K/mm3 (4.0-10.0)
[2021-05-03 20:35] LABS: CALCIUM 8.9 mg/dL (8.5-10.1)
[2021-05-03 20:36] LABS: ALBUMIN 3.2 g/dl (3.4-5.0); BLOOD UREA NITROGEN 9.9 mg/dL (7-18)
[2021-05-03 20:40] LABS: BILIRUBIN,TOTAL 0.5 mg/dL (0.2-1); TOT PROT 7.1 g/dl (6.4-8.2)
[2021-05-03 21:02] LABS: EPI CELLS >36 /uL (0-25.1); HYALINE CASTS 6 /uL (0-3.1); PH,URINE 6.5 (5.0-8.0); URINE APPEARANCE CLOUDY; URINE BACTERIA 203 /uL (0-1359); URINE BILIRUBIN NEGATIVE (NEGATIVE); URINE COLOR YELLOW; URINE GLUCOSE (UA) NEGATIVE (NEGATIVE); URINE KETONE TRACE (NEGATIVE); URINE LEUK ESTERASE 2+ (NEGATIVE); URINE NITRITE NEGATIVE (NEGATIVE); URINE PROTEIN NEGATIVE (NEGATIVE); URINE RBC 20 /uL (0-23.9); URINE UROBILINOGEN 0.2 mg/dL (0.2-1.0); URINE WBC 379 /uL (0-25.8)
[2021-05-03 21:51] LABS: ANISOCYTOSIS 0; MACROCYTOSIS 0; PLATELET ESTIMATE NORMAL
[2021-05-03] MEDS ORDERED: CEFTRIAXONE 1,000 MG in DEXTROSE 5%-WATER - 50 ML IVPB ONE (22:24)
[2021-05-03] MEDS ORDERED: CEFTRIAXONE 1 GM/50 ML BAG ONE (22:44)
[2021-05-04 03:11] VITALS: BMI 26.2
[2021-05-04] MEDS ORDERED: TRIMETHOBENZAMIDE HCL 300 MG CAPSULE PO PRN (03:30)
[2021-05-04] MEDS ORDERED: PIPERACILLIN/TAZOBACTAM 3.375 GM VIAL IVPB ONE ×2 (08:49→17:35)
[2021-05-04] MEDS ORDERED: DEXTROSE 5%-WATER - 50 ML IVPB ONE ×2 (08:49→17:35)
[2021-05-04 09:13] LABS: HEMATOCRIT 33.9 % (32.4-45.2); HEMOGLOBIN 11.8 GM/dL (10.7-15.3); MCH 32.7 pg (25.7-33.7); MCHC 34.8 g/dl (32.0-36.0); PLATELET COUNT 231 10^3/uL (134-434); RBC 3.61 M/mm3 (3.60-5.2); RDW 13.7 % (11.6-15.6); WHITE BLOOD COUNT 9.8 K/mm3 (4.0-10.0)
[2021-05-04 09:42] LABS: BLOOD UREA NITROGEN 6.5 mg/dL (7-18)
[2021-05-04 09:43] LABS: BILIRUBIN,TOTAL 0.9 mg/dL (0.2-1); TOT PROT 6.4 g/dl (6.4-8.2)
[2021-05-04 09:44] LABS: ALBUMIN 2.8 g/dl (3.4-5.0); CALCIUM 8.2 mg/dL (8.5-10.1); CREATININE 0.6 mg/dL (0.55-1.3)
[2021-05-04 09:45] LABS: PHOSPHOROUS 3.6 mg/dL (2.5-4.9)
[2021-05-04 09:48] LABS: MAGNESIUM 1.9 mg/dL (1.8-2.4)
[2021-05-04] MEDS: PRENATAL VITAMINS W/ FOLIC ACID TABLET (FP) PO SCH (09:50)
[2021-05-04] MEDS ORDERED: PIPERACILLIN/TAZOB 3.375 GM 3.375 GM in DEXTROSE 5%-WATER - 50 ML IVPB SCH (10:00)
[2021-05-04] MEDS ORDERED: IRON SUCROSE INJECTION 200 MG in SODIUM CHLORIDE 90 ML IVPB ONE (14:05)
[2021-05-04] MEDS: PIPERACILLIN/TAZOB 3.375 GM 3.375 GM in DEXTROSE 5%-WATER - 50 ML IVPB SCH (18:18)
[2021-05-05] MEDS ORDERED: PIPERACILLIN/TAZOBACTAM 3.375 GM VIAL IVPB ONE ×3 (00:54→16:21)
[2021-05-05] MEDS ORDERED: DEXTROSE 5%-WATER - 50 ML IVPB ONE ×3 (00:54→16:21)
[2021-05-05] MEDS: PIPERACILLIN/TAZOB 3.375 GM 3.375 GM in DEXTROSE 5%-WATER - 50 ML IVPB SCH ×3 (02:10→18:50)
[2021-05-05] MEDS ORDERED: SODIUM CHLORIDE 1,000 ML IV STA (10:35)
[2021-05-05 11:30] LABS: BASO % 0.5 % (0-2.0); EOS % 1.2 % (0-4.5); HEMATOCRIT 33.8 % (32.4-45.2); HEMOGLOBIN 11.8 GM/dL (10.7-15.3); LYMPH % 17.4 % (8-40); MCH 32.8 pg (25.7-33.7); MCHC 34.8 g/dl (32.0-36.0); MEAN CELL VOLUME 94.1 fl (80-96); MEAN PLT VOLUME 7.9 fl (7.5-11.1); MONO % 8.5 % (3.8-10.2); NEUT % 72.4 % (42.8-82.8); RBC 3.59 M/mm3 (3.60-5.2); RDW 13.8 % (11.6-15.6)
[2021-05-05 11:33] LABS: PROTHROMBIN TIME (PATIENT) 12.3 SEC (9.7-13.0)
[2021-05-05 11:39] LABS: WHITE BLOOD COUNT 10.3 K/mm3 (4.0-10.0)
[2021-05-05 11:44] LABS: ALBUMIN 2.8 g/dl (3.4-5.0); BLOOD UREA NITROGEN 9.3 mg/dL (7-18); CALCIUM 8.2 mg/dL (8.5-10.1)
[2021-05-05 11:45] LABS: MAGNESIUM 1.9 mg/dL (1.8-2.4)
[2021-05-05 11:47] LABS: CREATININE 0.7 mg/dL (0.55-1.3); PHOSPHOROUS 3.5 mg/dL (2.5-4.9)
[2021-05-05 11:48] LABS: BILIRUBIN,TOTAL 0.6 mg/dL (0.2-1); TOT PROT 6.6 g/dl (6.4-8.2)
[2021-05-05] MEDS: ACETAMINOPHEN 325 MG TABLET (FP) PO PRN (15:34)
[2021-05-05] MEDS ORDERED: CEFTRIAXONE 1 GM in DEXTROSE 5%-WATER - 50 ML IVPB SCH (16:00)
[2021-05-05] MEDS: PRENATAL VITAMINS W/ FOLIC ACID TABLET (FP) PO SCH (16:27)
[2021-05-05] MEDS ORDERED: ONDANSETRON 4 MG/2 ML VIAL ONE (18:46)
[2021-05-05] MEDS: LACTATED RINGERS SOLUTION 1,000 ML IV SCH (21:28)
[2021-05-06] MEDS ORDERED: DEXTROSE 5%-WATER - 50 ML IVPB ONE ×3 (01:00→17:24)
[2021-05-06] MEDS ORDERED: PIPERACILLIN/TAZOBACTAM 3.375 GM VIAL IVPB ONE ×2 (01:00→10:51)
[2021-05-06] MEDS: ACETAMINOPHEN 325 MG TABLET (FP) PO PRN ×2 (01:37→06:38)
[2021-05-06] MEDS: PIPERACILLIN/TAZOB 3.375 GM 3.375 GM in DEXTROSE 5%-WATER - 50 ML IVPB SCH ×2 (01:40→10:53)
[2021-05-06] MEDS: LACTATED RINGERS SOLUTION 1,000 ML IV SCH ×2 (06:16→18:06)
[2021-05-06 08:55] LABS: BASO % 0.3 % (0-2.0); EOS % 0.7 % (0-4.5); HEMATOCRIT 31.1 % (32.4-45.2); HEMOGLOBIN 10.7 GM/dL (10.7-15.3); LYMPH % 13.9 % (8-40); MCH 32.3 pg (25.7-33.7); MCHC 34.3 g/dl (32.0-36.0); MEAN CELL VOLUME 94.1 fl (80-96); MEAN PLT VOLUME 7.7 fl (7.5-11.1); MONO % 7.5 % (3.8-10.2); NEUT % 77.6 % (42.8-82.8); PLATELET COUNT 217 10^3/uL (134-434); RDW 14.2 % (11.6-15.6); WHITE BLOOD COUNT 10.1 K/mm3 (4.0-10.0)
[2021-05-06 09:20] LABS: ALBUMIN 2.5 g/dl (3.4-5.0); BLOOD UREA NITROGEN 6.4 mg/dL (7-18); CALCIUM 8.1 mg/dL (8.5-10.1)
[2021-05-06 09:22] LABS: MAGNESIUM 2.1 mg/dL (1.8-2.4)
[2021-05-06 09:23] LABS: CREATININE 0.6 mg/dL (0.55-1.3); PHOSPHOROUS 3.4 mg/dL (2.5-4.9)
[2021-05-06 09:24] LABS: BILIRUBIN,TOTAL 0.7 mg/dL (0.2-1); TOT PROT 5.9 g/dl (6.4-8.2)
[2021-05-06] MEDS ORDERED: PT OWN MED DRAWER 7, Y5N ONE (10:51)
[2021-05-06] MEDS: PRENATAL VITAMINS W/ FOLIC ACID TABLET (FP) PO SCH (10:55)
[2021-05-06] MEDS: ACETAMINOPHEN 1000 MG/100 ML VIAL (NON FORMULARY) IVPB PRN ×3 (12:14→23:20)
[2021-05-06] MEDS ORDERED: ACETAMINOPHEN 1000 MG/100 ML VIAL (NON FORMULARY) IVPB ONE (12:15)
[2021-05-06] MEDS: HEPARIN NA (PORCINE) 5,000 UNITS/ML 1ML VIAL SQ SCH ×3 (15:10→21:05)
[2021-05-06] MEDS ORDERED: cefTRIAXone SODIUM 1 GM VIAL ONE (17:24)
[2021-05-06] MEDS: CEFTRIAXONE 1 GM in DEXTROSE 5%-WATER - 50 ML IVPB SCH (18:07)
[2021-05-07] MEDS: LACTATED RINGERS SOLUTION 1,000 ML IV SCH ×2 (02:56→06:54)
[2021-05-07] MEDS ORDERED: PT OWN MED DRAWER 7, Y5N ONE ×3 (03:08→12:50)
[2021-05-07] MEDS: HEPARIN NA (PORCINE) 5,000 UNITS/ML 1ML VIAL SQ SCH ×3 (05:39→21:09)
[2021-05-07] MEDS: ACETAMINOPHEN 1000 MG/100 ML VIAL (NON FORMULARY) IVPB PRN ×3 (05:47→18:53)
[2021-05-07 09:11] LABS: BASO % 0.5 % (0-2.0); HEMATOCRIT 32.6 % (32.4-45.2); HEMOGLOBIN 11.3 GM/dL (10.7-15.3); LYMPH % 17.3 % (8-40); MCH 33.1 pg (25.7-33.7); MCHC 34.7 g/dl (32.0-36.0); MEAN CELL VOLUME 95.7 fl (80-96); MEAN PLT VOLUME 8.8 fl (7.5-11.1); MONO % 7.3 % (3.8-10.2); NEUT % 73.9 % (42.8-82.8); PLATELET COUNT 206 10^3/uL (134-434); RBC 3.41 M/mm3 (3.60-5.2); WHITE BLOOD COUNT 9.4 K/mm3 (4.0-10.0)
[2021-05-07 09:41] LABS: CALCIUM 8.5 mg/dL (8.5-10.1)
[2021-05-07 09:42] LABS: ALBUMIN 2.6 g/dl (3.4-5.0); BLOOD UREA NITROGEN 6.1 mg/dL (7-18); MAGNESIUM 1.8 mg/dL (1.8-2.4)
[2021-05-07 09:45] LABS: CREATININE 0.7 mg/dL (0.55-1.3)
[2021-05-07 09:46] LABS: BILIRUBIN,TOTAL 0.6 mg/dL (0.2-1); TOT PROT 6.4 g/dl (6.4-8.2)
[2021-05-07] MEDS ORDERED: cefTRIAXone SODIUM 1 GM VIAL ONE (10:58)
[2021-05-07] MEDS ORDERED: DEXTROSE 5%-WATER - 50 ML IVPB ONE (10:58)
[2021-05-07] MEDS: PRENATAL VITAMINS W/ FOLIC ACID TABLET (FP) PO SCH (11:12)
[2021-05-07] MEDS: CEFTRIAXONE 1 GM in DEXTROSE 5%-WATER - 50 ML IVPB SCH (11:12)
[2021-05-08] MEDS: ACETAMINOPHEN 1000 MG/100 ML VIAL (NON FORMULARY) IVPB PRN ×2 (01:59→21:41)
[2021-05-08] MEDS: HEPARIN NA (PORCINE) 5,000 UNITS/ML 1ML VIAL SQ SCH ×3 (05:34→21:46)
[2021-05-08 08:42] LABS: BASO % 0.8 % (0-2.0); HEMATOCRIT 33.9 % (32.4-45.2); HEMOGLOBIN 11.5 GM/dL (10.7-15.3); LYMPH % 23.1 % (8-40); MCH 32.2 pg (25.7-33.7); MEAN CELL VOLUME 94.7 fl (80-96); MEAN PLT VOLUME 8.8 fl (7.5-11.1); MONO % 6.9 % (3.8-10.2); NEUT % 67.2 % (42.8-82.8); PLATELET COUNT 233 10^3/uL (134-434); RBC 3.58 M/mm3 (3.60-5.2); RDW 13.6 % (11.6-15.6); WHITE BLOOD COUNT 8.7 K/mm3 (4.0-10.0)
[2021-05-08 09:08] LABS: CALCIUM 8.5 mg/dL (8.5-10.1)
[2021-05-08 09:09] LABS: ALBUMIN 2.7 g/dl (3.4-5.0); BLOOD UREA NITROGEN 7.7 mg/dL (7-18); MAGNESIUM 1.9 mg/dL (1.8-2.4)
[2021-05-08 09:12] LABS: CREATININE 0.6 mg/dL (0.55-1.3); PHOSPHOROUS 3.4 mg/dL (2.5-4.9)
[2021-05-08 09:13] LABS: BILIRUBIN,TOTAL 0.3 mg/dL (0.2-1); TOT PROT 6.4 g/dl (6.4-8.2)
[2021-05-08] MEDS ORDERED: cefTRIAXone SODIUM 1 GM VIAL ONE (11:17)
[2021-05-08] MEDS ORDERED: PT OWN MED DRAWER 7, Y5N ONE (11:17)
[2021-05-08] MEDS ORDERED: DEXTROSE 5%-WATER - 50 ML IVPB ONE ×2 (11:17→17:43)
[2021-05-08] MEDS: LACTATED RINGERS SOLUTION 1,000 ML IV SCH (11:34)
[2021-05-08] MEDS: CEFTRIAXONE 1 GM in DEXTROSE 5%-WATER - 50 ML IVPB SCH (11:34)
[2021-05-08] MEDS: PRENATAL VITAMINS W/ FOLIC ACID TABLET (FP) PO SCH (11:34)
[2021-05-08] MEDS: LIDOCAINE 5% TOPICAL PATCH TP SCH (14:04)
[2021-05-08] MEDS ORDERED: cefTAZidime PENTAHYDRATE 1 GM VIAL (RESTRICTED TO ID) ONE (17:43)
[2021-05-08] MEDS: CEFTAZIDIME PENTAHYDRATE 1 GM in DEXTROSE 5%-WATER - 50 ML IVPB SCH (17:49)
[2021-05-08] MEDS: LIDOCAINE PATCH REMOVAL MC SCH (21:54)
[2021-05-09] MEDS ORDERED: cefTAZidime PENTAHYDRATE 1 GM VIAL (RESTRICTED TO ID) ONE ×3 (01:28→17:19)
[2021-05-09] MEDS ORDERED: DEXTROSE 5%-WATER - 50 ML IVPB ONE ×3 (01:28→17:19)
[2021-05-09] MEDS: CEFTAZIDIME PENTAHYDRATE 1 GM in DEXTROSE 5%-WATER - 50 ML IVPB SCH ×3 (01:52→17:25)
[2021-05-09] MEDS: LACTATED RINGERS SOLUTION 1,000 ML IV SCH ×3 (02:00→17:25)
[2021-05-09] MEDS: HEPARIN NA (PORCINE) 5,000 UNITS/ML 1ML VIAL SQ SCH ×3 (05:19→21:48)
[2021-05-09] MEDS: ACETAMINOPHEN 1000 MG/100 ML VIAL (NON FORMULARY) IVPB PRN (07:50)
[2021-05-09 09:33] LABS: BASO % 0.5 % (0-2.0); EOS % 1.6 % (0-4.5); HEMATOCRIT 35.3 % (32.4-45.2); HEMOGLOBIN 12.3 GM/dL (10.7-15.3); LYMPH % 18.2 % (8-40); MCHC 34.9 g/dl (32.0-36.0); MEAN CELL VOLUME 94.4 fl (80-96); MEAN PLT VOLUME 8.2 fl (7.5-11.1); MONO % 5.5 % (3.8-10.2); NEUT % 74.2 % (42.8-82.8); PLATELET COUNT 214 10^3/uL (134-434); RBC 3.74 M/mm3 (3.60-5.2); RDW 13.8 % (11.6-15.6); WHITE BLOOD COUNT 10.4 K/mm3 (4.0-10.0)
[2021-05-09 10:34] LABS: CALCIUM 8.6 mg/dL (8.5-10.1)
[2021-05-09 10:35] LABS: BLOOD UREA NITROGEN 8.8 mg/dL (7-18); MAGNESIUM 1.9 mg/dL (1.8-2.4)
[2021-05-09 10:38] LABS: CREATININE 0.6 mg/dL (0.55-1.3); PHOSPHOROUS 3.9 mg/dL (2.5-4.9)
[2021-05-09 10:40] LABS: BILIRUBIN,TOTAL 0.5 mg/dL (0.2-1)
[2021-05-09] MEDS ORDERED: PT OWN MED DRAWER 7, Y5N ONE (10:48)
[2021-05-09 10:54] LABS: EPI CELLS >36 /uL (0-25.1); HYALINE CASTS 1 /uL (0-3.1); URINE APPEARANCE TURBID; URINE BACTERIA 450 /uL (0-1359); URINE BILIRUBIN NEGATIVE (NEGATIVE); URINE COLOR YELLOW; URINE GLUCOSE (UA) NEGATIVE (NEGATIVE); URINE KETONE NEGATIVE (NEGATIVE); URINE LEUK ESTERASE 2+ (NEGATIVE); URINE NITRITE NEGATIVE (NEGATIVE); URINE PROTEIN NEGATIVE (NEGATIVE); URINE RBC 13 /uL (0-23.9); URINE UROBILINOGEN 0.2 mg/dL (0.2-1.0); URINE WBC 226 /uL (0-25.8)
[2021-05-09 11:02] LABS: YEAST NON SEEN (NEGATIVE)
[2021-05-09] MEDS: PRENATAL VITAMINS W/ FOLIC ACID TABLET (FP) PO SCH (11:05)
[2021-05-09] MEDS: LIDOCAINE 5% TOPICAL PATCH TP SCH (11:06)
[2021-05-09] MEDS ORDERED: ACETAMINOPHEN 325 MG TABLET (FP) PO PRN (13:28)
[2021-05-09 14:09] LABS: EPI CELLS 3 /uL (0-25.1); HYALINE CASTS 1 /uL (0-3.1); URINE APPEARANCE CLEAR; URINE BACTERIA 7 /uL (0-1359); URINE BILIRUBIN NEGATIVE (NEGATIVE); URINE COLOR YELLOW; URINE GLUCOSE (UA) NEGATIVE (NEGATIVE); URINE KETONE NEGATIVE (NEGATIVE); URINE LEUK ESTERASE TRACE (NEGATIVE); URINE NITRITE NEGATIVE (NEGATIVE); URINE PROTEIN 1+ (NEGATIVE); URINE RBC 225 /uL (0-23.9); URINE UROBILINOGEN 0.2 mg/dL (0.2-1.0); URINE WBC 11 /uL (0-25.8)
[2021-05-09] MEDS: LIDOCAINE PATCH REMOVAL MC SCH (21:49)
[2021-05-10] MEDS ORDERED: cefTAZidime PENTAHYDRATE 1 GM VIAL (RESTRICTED TO ID) ONE ×3 (01:29→17:06)
[2021-05-10] MEDS ORDERED: DEXTROSE 5%-WATER - 50 ML IVPB ONE ×3 (01:30→17:06)
[2021-05-10] MEDS: CEFTAZIDIME PENTAHYDRATE 1 GM in DEXTROSE 5%-WATER - 50 ML IVPB SCH ×3 (01:30→17:45)
[2021-05-10] MEDS: HEPARIN NA (PORCINE) 5,000 UNITS/ML 1ML VIAL SQ SCH ×3 (05:05→22:15)
[2021-05-10] MEDS: LACTATED RINGERS SOLUTION 1,000 ML IV SCH ×2 (06:48→17:45)
[2021-05-10] MEDS ORDERED: PT OWN MED DRAWER 7, Y5N ONE (09:29)
[2021-05-10] MEDS: LIDOCAINE 5% TOPICAL PATCH TP SCH (09:56)
[2021-05-10] MEDS: PRENATAL VITAMINS W/ FOLIC ACID TABLET (FP) PO SCH (09:56)
[2021-05-10 18:26] VITALS: BP 126/71; PULSE 92; TEMP 98.5
[2021-05-10] MEDS: LIDOCAINE PATCH REMOVAL MC SCH (21:00)
== END 2021-05-10 22:14 | disposition home or self-care (01) | DRG 566 ==
LOC: JER 18:37 → JERBED 22:33 → J5S 05-04 02:56
PROVIDERS: ADMIT Internal Medicine; ATTEND Internal Medicine
PROC: 0T903ZZ Drainage of Right Kidney, Percutaneous Approach (ICD-10-PCS; principal; 2021-05-05 17:00)
DX: O23.02 Infections of kidney in pregnancy, second trimester (principal); N13.70 Vesicoureteral-reflux, unspecified; T83.512A Infection and inflammatory reaction due to nephrostomy catheter, initial encounter; D72.829 Elevated white blood cell count, unspecified; N10 Acute pyelonephritis; N13.6 Pyonephrosis; Z3A.20 20 weeks gestation of pregnancy; Y83.9 Surgical procedure, unspecified as the cause of abnormal reaction of the patient, or of later complication, without mention of misadventure at the time of the procedure
CPT/HCPCS: 36415; 50432; 50435; 76775-TC; 76815; 80053; 81003; 82550; 83605; 83735; 84100; 85025; 85027; 85610; 87070; 87075; 87086; 87102; 87116; 87186; 87205; 87206; 87210; 93005; 93010; 94760; 97116-GP; 97161-GP; 99285-25; A4358; C1729; C1769; C1894; C9803; J0131; J1644; U0003; U0005

== ENCOUNTER 2021-05-31 23:15 | Observation (INO) | payer OTHER ==
[2021-05-31 23:29] VITALS: BMI 26.4
[2021-06-01] MEDS ORDERED: ACETAMINOPHEN 1000 MG/100 ML VIAL IVPB ONE ×2 (00:56→08:16)
[2021-06-01] MEDS ORDERED: ACETAMINOPHEN INJECTION 100 ML IVPB ONE ×2 (00:59→08:18)
[2021-06-01 01:25] LABS: BASO % 0.3 % (0-2.0); EOS % 0.6 % (0-4.5); HEMATOCRIT 33.1 % (32.4-45.2); HEMOGLOBIN 11.4 GM/dL (10.7-15.3); LYMPH % 13.3 % (8-40); MCH 32.6 pg (25.7-33.7); MCHC 34.4 g/dl (32.0-36.0); MEAN PLT VOLUME 7.5 fl (7.5-11.1); MONO % 6.6 % (3.8-10.2); NEUT % 79.2 % (42.8-82.8); PLATELET COUNT 226 10^3/uL (134-434); RBC 3.49 M/mm3 (3.60-5.2); RDW 13.9 % (11.6-15.6); WHITE BLOOD COUNT 12.6 K/mm3 (4.0-10.0)
[2021-06-01 01:58] LABS: CHLORIDE 109 mmol/L (98-107); SODIUM 141 mmol/L (136-145)
[2021-06-01 02:01] LABS: ALBUMIN 2.7 g/dl (3.4-5.0); ANION GAP 10 MMOL/L (8-16); CO2 22 mmol/L (21-32)
[2021-06-01 02:04] LABS: SGOT/AST 11 U/L (15-37); SGPT/ALT 10 U/L (13-61)
[2021-06-01 02:06] LABS: BILIRUBIN,TOTAL 0.4 mg/dL (0.2-1); CREATININE 0.7 mg/dL (0.55-1.3); TOT PROT 6.4 g/dl (6.4-8.2)
[2021-06-01 02:07] LABS: ALK PHOS 59 U/L (45-117)
[2021-06-01 02:26] LABS: GLUCOSE,RANDOM 95 mg/dL (74-106)
[2021-06-01 02:34] LABS: EPI CELLS 8 /uL (0-25.1); HYALINE CASTS 1 /uL (0-3.1); URINE APPEARANCE CLEAR; URINE BACTERIA 1 /uL (0-1359); URINE BILIRUBIN NEGATIVE (NEGATIVE); URINE COLOR YELLOW; URINE GLUCOSE (UA) NEGATIVE (NEGATIVE); URINE KETONE NEGATIVE (NEGATIVE); URINE LEUK ESTERASE 1+ (NEGATIVE); URINE NITRITE NEGATIVE (NEGATIVE); URINE PROTEIN 1+ (NEGATIVE); URINE RBC 650 /uL (0-23.9); URINE UROBILINOGEN 0.2 mg/dL (0.2-1.0); URINE WBC 49 /uL (0-25.8)
[2021-06-01] MEDS ORDERED: morphine CARPU-JECT 2 MG/1 ML DISP.SYRIN IVPUSH ONE (05:29)
[2021-06-01] MEDS ORDERED: LACTATED RINGERS SOLUTION 1000 ML INFUS.BAG IV ONE ×2 (05:29→05:36)
[2021-06-01] MEDS ORDERED: morphine SULFATE 4 MG/ML VIAL ONE (05:35)
[2021-06-01] MEDS ORDERED: morphine SULFATE 4 MG/ML VIAL IVPUSH PRN ×2 (09:20→09:22)
[2021-06-01] MEDS ORDERED: ONDANSETRON 4 MG/2 ML VIAL IVPUSH PRN (10:34)
[2021-06-01] MEDS ORDERED: cefTAZidime PENTAHYDRATE 1 GM/50ML PRE-DOCKED (RESTRICTED TO ID) IVPB SCH (11:15)
[2021-06-01] MEDS ORDERED: ceFAZolin 2 GRAM PREMIX BAG IVPB SCH (11:15)
[2021-06-01] MEDS ORDERED: CEFAZOLIN 2 GM in DEXTROSE 5%-WATER 100 ML IVPB ONE (11:45)
[2021-06-01] MEDS: ACETAMINOPHEN 1000 MG/100 ML VIAL IVPB PRN (17:03)
[2021-06-01] MEDS ORDERED: ceFAZolin SODIUM 1 GM VIAL ONE (21:29)
[2021-06-01] MEDS ORDERED: DEXTROSE 5%-WATER - 50 ML IVPB ONE (21:29)
[2021-06-01] MEDS: CEFAZOLIN 1 GM in DEXTROSE 5%-WATER - 50 ML IVPB SCH (21:36)
[2021-06-02] MEDS: ACETAMINOPHEN 1000 MG/100 ML VIAL IVPB PRN ×2 (01:36→10:06)
[2021-06-02] MEDS: CEFAZOLIN 1 GM in DEXTROSE 5%-WATER - 50 ML IVPB SCH (05:10)
[2021-06-02 08:45] LABS: BASO % 0.3 % (0-2.0); EOS % 0.3 % (0-4.5); HEMATOCRIT 32.8 % (32.4-45.2); HEMOGLOBIN 11.4 GM/dL (10.7-15.3); LYMPH % 6.8 % (8-40); MCH 33.3 pg (25.7-33.7); MCHC 34.7 g/dl (32.0-36.0); MEAN PLT VOLUME 7.3 fl (7.5-11.1); MONO % 6.7 % (3.8-10.2); NEUT % 85.9 % (42.8-82.8); PLATELET COUNT 187 10^3/uL (134-434); RBC 3.42 M/mm3 (3.60-5.2); WHITE BLOOD COUNT 8.6 K/mm3 (4.0-10.0)
[2021-06-02 09:05] LABS: INR 1.16 (0.83-1.09)
[2021-06-02 09:08] LABS: ALBUMIN 2.5 g/dl (3.4-5.0); BLOOD UREA NITROGEN 5.2 mg/dL (7-18); CALCIUM 8.3 mg/dL (8.5-10.1); MAGNESIUM 1.7 mg/dL (1.8-2.4)
[2021-06-02 09:11] LABS: CREATININE 0.9 mg/dL (0.55-1.3)
[2021-06-02 09:13] LABS: TOT PROT 6.2 g/dl (6.4-8.2)
[2021-06-02] MEDS: ELECTROLYTE-148 SOLN 1,000 ML IV SCH ×2 (10:55→23:39)
[2021-06-02] MEDS ORDERED: DEXMEDETOMIDINE HCL 200 MCG/2 ML IVPB ONE (12:43)
[2021-06-02] MEDS ORDERED: LIDOCAINE HCL/PF 2% SDV 5ML VIAL ONE (12:45)
[2021-06-02] MEDS ORDERED: PROPOFOL 20 ML ONE ×2 (12:46)
[2021-06-02] MEDS ORDERED: LACTATED RINGERS SOLUTION 1,000 ML IV SCH (14:15)
[2021-06-02] MEDS ORDERED: ePHEDrine SULFATE 50 MG/1 ML AMPULE ONE (14:31)
[2021-06-02] MEDS: CEFTAZIDIME PENTAHYDRATE 2 GM in DEXTROSE 5%-WATER 100 ML IVPB SCH ×4 (15:48→23:34)
[2021-06-02] MEDS ORDERED: AMPICILLIN - 2 GM in SODIUM CHLORIDE 100 ML IVPB ONE (15:58)
[2021-06-02] MEDS ORDERED: ACETAMINOPHEN 1000 MG/100 ML VIAL IVPB PRN (16:26)
[2021-06-02] MEDS ORDERED: AMPICILLIN - 1 GM in SODIUM CHLORIDE 100 ML IVPB SCH (19:59)
[2021-06-03 05:53] VITALS: BP 100/62
[2021-06-03 06:23] LABS: BASO % 0.3 % (0-2.0); EOS % 1.4 % (0-4.5); HEMATOCRIT 30.5 % (32.4-45.2); HEMOGLOBIN 10.7 GM/dL (10.7-15.3); LYMPH % 13.3 % (8-40); MCH 33.3 pg (25.7-33.7); MCHC 35.1 g/dl (32.0-36.0); MEAN CELL VOLUME 94.8 fl (80-96); MONO % 9.4 % (3.8-10.2); NEUT % 75.6 % (42.8-82.8); PLATELET COUNT 181 10^3/uL (134-434); RBC 3.22 M/mm3 (3.60-5.2); RDW 13.8 % (11.6-15.6); WHITE BLOOD COUNT 8.2 K/mm3 (4.0-10.0)
[2021-06-03 06:36] LABS: CALCIUM 7.9 mg/dL (8.5-10.1)
[2021-06-03 06:37] LABS: ALBUMIN 2.2 g/dl (3.4-5.0); BLOOD UREA NITROGEN 4.6 mg/dL (7-18)
[2021-06-03 06:40] LABS: CREATININE 0.6 mg/dL (0.55-1.3)
[2021-06-03 06:41] LABS: BILIRUBIN,TOTAL 0.4 mg/dL (0.2-1); TOT PROT 5.7 g/dl (6.4-8.2)
[2021-06-03 06:47] LABS: MAGNESIUM 1.7 mg/dL (1.8-2.4)
[2021-06-03] MEDS ORDERED: POTASSIUM CHLORIDE TABS 20 MEQ TABLET.ER (FP) PO ONE ×2 (08:45→14:00)
[2021-06-03] MEDS: CEFTAZIDIME PENTAHYDRATE 2 GM in DEXTROSE 5%-WATER 100 ML IVPB SCH (09:04)
[2021-06-03 10:15] VITALS: PULSE 105; TEMP 97.9
[2021-06-03] MEDS ORDERED: SULFAMETHOXAZOLE/TRIMETHOPRIM 800MG/160MG D.S. TABLET PO SCH (22:00)
== END 2021-06-03 16:05 | disposition home or self-care (01) ==
LOC: JER 23:15 → UNDOADMOB 06-01 02:36 → JERBED 06-01 02:36 → INTOOBSV 06-01 02:36 → JERBED 06-01 09:56 → J3W 06-01 09:56 → JERBED 06-01 13:28 → J3W 06-01 13:28
PROVIDERS: ATTEND Obstetrics & Gynecology
PROC: 3E033NZ Introduction of Analgesics, Hypnotics, Sedatives into Peripheral Vein, Percutaneous Approach (ICD-10-PCS; principal; 2021-06-01)
PROC: 3E03329 Introduction of Other Anti-infective into Peripheral Vein, Percutaneous Approach (ICD-10-PCS; 2021-06-01)
DX: O26.92 Pregnancy related conditions, unspecified, second trimester (principal); N13.30 Unspecified hydronephrosis; R10.9 Unspecified abdominal pain; R10.31 Right lower quadrant pain; N20.0 Calculus of kidney; N39.0 Urinary tract infection, site not specified; Z3A.21 21 weeks gestation of pregnancy
CPT/HCPCS: 36415; 50435; 76775-TC; 80053; 81003; 82550; 83735; 84484; 85025; 85610; 87040; 87086; 87186; 93005; 93010; 94760; 96365; 96366; 96375; 96376; 99285-25; C9803; G0378; J0131; U0003; U0005